=== PATIENT | female | born 1970 | race Caucasian/White ===

== ENCOUNTER 2020-08-05 16:30 | Outpatient (REF) | payer OTHER, SELFPAY ==
[2020-08-05 18:21] LABS: Syphilis Screen Nonreactive (Nonreactive)
[2020-08-05 19:14] LABS: Erythrocyte Sedimentation Rate 7 MM/HR (0-20)
[2020-08-06 17:06] LABS: Lyme Abs Screen <0.90 index
[2020-08-07 14:02] LABS: Anti Nuclear Antibody Screen NEGATIVE (NEGATIVE)
[2020-08-09 11:37] LABS: IgA 140 mg/dL (47-310); IgG 1006 mg/dL (600-1640); IgM 59 mg/dL (50-300)
== END 2020-08-05 16:31 | disposition home or self-care (01) ==
LOC: HO.LAB 16:30
PROVIDERS: PCP Internal Medicine; Visit Provider Psychiatry & Neurology Neurology
DX: G93.49 Other encephalopathy (principal)
CPT/HCPCS: 36415; 82784; 85652; 86038; 86039; 86334; 86618; 86780

== ENCOUNTER → 2023-02-03 08:26 | Outpatient (BNVA) | payer OTHER, SELFPAY | PROVIDERS: PCP Internal Medicine; Visit Provider Nurse Practitioner Family ==

== ENCOUNTER → 2023-02-22 11:06 | Outpatient (REF) | payer OTHER, SELFPAY | LOC: HO.SL 11:06 | PROVIDERS: PCP Internal Medicine; Visit Provider Nurse Practitioner Family | DX: G47.19 Other hypersomnia (principal); R06.83 Snoring; G47.9 Sleep disorder, unspecified | CPT/HCPCS: 95806 ==

== ENCOUNTER 2023-04-22 09:27 | Day surgery (SDC) | payer OTHER, SELFPAY ==
--- NOTE | ~2023-04-22 | FL_ITS ---
EXAMINATION: XR LUMBAR PUNCTURE CLINICAL INFORMATION: 52-year-old female with multiple sclerosis COMPARISON: None available. TECHNIQUE: The patient was positioned oblique prone on the fluoroscopy table. An appropriate site for access to the L2-L3 interlaminar space was marked on the skin. The overlying skin was prepped and draped. 1% lidocaine was injected subcutaneously and extended to the deep soft tissues. Under fluoroscopic guidance, a 22-gauge spinal needle was advanced into the thecal sac. Clear CSF returned through the needle hub. A total of 9 mL of CSF was obtained and split between the 4 containers. A sterile dressing was applied. The patient tolerated the procedure well. FINDINGS: Normal appearance of the CSF. 9 mL obtained. FL/FL guided lumbar puncture LP IMPRESSION: Successful fluoroscopically guided lumbar puncture as described.
[2023-04-22 10:01] VITALS: BMI 22.9
[2023-04-22 10:07] LABS: UPreg QC Valid YES; Urine Pregnancy NEGATIVE (NEGATIVE)
[2023-04-22 10:36] LABS: MANUAL DIFF FLAG NO
[2023-04-22 10:43] LABS: Basophils Absolute Auto 0.1 X10*3/uL (0.0-0.2); Basophils Percent Auto 1.4 % (0-2); Eosinophils Absolute Auto 0.1 X10*3/uL (0.0-0.4); Eosinophils Percent Auto 1.7 % (0-4); Hematocrit 43.1 % (37.0-47.0); Hemoglobin 13.8 g/dl (12.0-16.0); Imm Gran Abs Auto 0.05 X10*3/uL (0.00-0.03); Imm Gran Pct Auto 0.7 % (0.0-0.4); Lymphocytes Absolute Auto 1.6 X10*3/uL (1.2-4.9); Lymphocytes Percent Auto 22.1 % (20-40); Mean Corpuscular Hemoglobin 30.3 pg (27.0-33.0); Mean Corpuscular Volume 94.5 fL (80.0-98.0); Mean Platelet Volume 10.1 fL (9.4-12.3); Monocytes Absolute Auto 0.6 X10*3/uL (0.1-1.2); Monocytes Percent Auto 8.3 % (2-11); Neutrophils Absolute Auto 4.7 x10*3/uL (2.0-8.3); Neutrophils Percent Auto 65.8 % (45-73); Platelet Count 332 X10*3/uL (160-400); Red Blood Count 4.56 X10*6/uL (4.20-5.50); Red Cell Distribution Width 13.2 % (11.0-16.0); White Blood Count 7.1 X10*3/uL (4.8-10.8)
[2023-04-22 10:46] LABS: INTERNATIONAL NORM RATIO 0.8 (0.9-1.1); Prothrombin Time 9.5 SEC (10.0-13.1)
[2023-04-22 10:49] LABS: Partial Thromboplastin Time 30.3 SEC (26.0-36.4)
[2023-04-22 10:52] LABS: Blood Urea Nitrogen 17 mg/dL (9-16); Creatinine Clr Calc Pharmacy 46.7; Estimated Glomerular Filt Rate 50
--- NOTE | 2023-04-22 11:07 | PC.NURSE ---
report given to marti dockery rn at this time. aware to review labs
[2023-04-22 12:54] VITALS: BP 113/68; PULSE 70; RESP 16; TEMP 37.2; O2SAT 99
[2023-04-22 13:15] VITALS: BP 116/67; PULSE 74; RESP 16; O2SAT 99
[2023-04-22 13:45] VITALS: BP 112/68; PULSE 75; RESP 16; O2SAT 99
[2023-04-22 14:15] VITALS: BP 113/67; PULSE 75; RESP 16; TEMP 37.4; O2SAT 99
[2023-04-22 14:28] LABS: CSF Appearance Clear, Colorless
[2023-04-22 14:59] LABS: Glucose CSF 67 mg/dL; Total Protein CSF 17.4 mg/dL (15-45)
[2023-04-22 15:06] LABS: CSF Tube # 1
[2023-04-22 15:55] LABS: Red Blood Cell CSF 45 MM*3; White Blood Cell CSF 6 MM*3
[2023-04-22 15:56] LABS: Appearance CSF CLEAR; CSF Tube # 1; Color CSF COLORLESS; Lymphocytes CSF 100 %
[2023-04-22 16:33] LABS: Appearance CSF CLEAR; CSF Tube # 4; Color CSF COLORLESS
[2023-04-22 16:34] LABS: Red Blood Cell CSF 3 MM*3; White Blood Cell CSF 2 MM*3
[2023-04-22 16:35] LABS: Lymphocytes CSF 1 %
[2023-04-24 07:01] LABS: Oligoclonal Serum Yes
[2023-04-24 20:19] LABS: Lyme (B. burgdorferi) PCR NOT DETECTED (NOT DETECTED)
[2023-04-25 15:28] LABS: VDRL Qualitative CSF Nonreactive (Nonreactive)
[2023-04-27 14:14] LABS: Albumin 3.5 g/dL (3.6-5.1); Albumin, CSF 8.6 mg/dL (8.0-42.0); IgG 860 mg/dL (600-1640); IgG Synthesis Rate -4.2 mg/24 h (-9.9-3.3); IgG, CSF 0.8 mg/dL (0.8-7.7)
[2023-04-29 12:04] LABS: Oligoclonal Banding Absent (Absent)
[2023-05-17 08:58] LABS: Albumin, CSF 8.6
== END 2023-04-22 14:22 | disposition home or self-care (01) ==
PROVIDERS: Nurse Practitioner Family; PCP Internal Medicine; Visit Provider Radiology Diagnostic Radiology
PROC: 009U3ZZ Drainage of Spinal Canal, Percutaneous Approach (ICD-10-PCS; CPT 62270; principal; 2023-04-22 11:00)
DX: R90.82 White matter disease, unspecified (principal); R20.2 Paresthesia of skin; R29.2 Abnormal reflex; R25.1 Tremor, unspecified; G43.009 Migraine without aura, not intractable, without status migrainosus; J45.909 Unspecified asthma, uncomplicated; Z79.899 Other long term (current) drug therapy; Z88.0 Allergy status to penicillin
CPT/HCPCS: 36415; 62328; 81025; 82042; 82565; 82945; 83916; 84157; 84166; 84520; 85025; 85610; 85730; 86335; 86592; 87015; 87070; 87205; 87476; 89051

== ENCOUNTER → 2023-04-22 10:21 | Outpatient (BNV) | payer OTHER, SELFPAY | PROVIDERS: PCP Internal Medicine; Visit Provider Radiology Vascular & Interventional Radiology | DX: G35 Multiple sclerosis (principal) | CPT/HCPCS: 62328 ==

== ENCOUNTER 2023-05-19 09:56 | Outpatient (AMB) | payer OTHER, SELFPAY ==
[2023-05-19 10:22] VITALS: BP 102/68; PULSE 74; O2SAT 100
--- NOTE | 2023-05-19 10:22 | A.OFFVIS_ITS ---
Intake Vital Signs 05/19/23 10:22 Height 5 ft 2 in BP 102/68 Blood Pressure Location Lt brachial Position Sitting Pulse 74 Pulse Source Pulse Oximeter Pulse Oximetry (%) 100 Oxygen Delivery Method Room Air Intake Visit Reasons: 3m follow up LONG/possible MS - Confirmed Intake Note: Pt presents as a 3 month f/u for headache/ possible MS. Pt states she is doing okay and she has no concerns. [employer] Required: No Allergies amoxicillin Allergy (Unknown, Verified 05/19/23 10:24) Unknown bee venom protein (honey bee) Allergy (Unknown, Verified 05/19/23 10:24) Unknown erythromycin base [From Erythrocin] Allergy (Unknown, Verified 05/19/23 10:24) Unknown penicillin G Allergy (Unknown, Verified 05/19/23 10:24) Unknown Medication List - Last Reconciled 05/30/23 by CHARLINE Bhandari albuterol sulfate 90 mcg/actuation inhalation ascorbic acid (vitamin C) PO DAILY azelastine intranasal biotin PO DAILY budesonide-formoterol 160-4.5 mcg/actuation (Symbicort) 2 puffs inhalation BID bupropion HCl 300 mg PO DAILY znzbnudkdd-readacxxschos-pddv 50-325-40 mg 1 tab PO Q4H PRN 7 days cholecalciferol (vitamin D3) PO DAILY etonogestrel-ethinyl estradiol 0.12-0.015 mg/24 hr (NuvaRing) vag rings vaginal gabapentin 300 mg PO BEDTIME levothyroxine 50 mcg PO DAILY magnesium oxide 500 mg PO DAILY montelukast 10 mg PO DAILY oxycodone-acetaminophen 5-325 mg 1 tab PO TID PRN riboflavin (vitamin B2) 400 mg PO DAILY 30 days sumatriptan succinate 100 mg PO Q2H PRN 30 days topiramate 100 mg PO DAILY triamcinolone acetonide (Nasacort) sprays intranasal vitamin B complex PO DAILY zolpidem 5 - 10 mg PO BEDTIME PRN HPI HPI Comments History of Present Illness Details 52-yr-old female presents for f/u visit. Pt denies any significant interval medical changes. Since, the last visit, pt underwent LP to assess for central inflammatory/demyelinating process d/t Brain MRI findings suspicious for demyelinating lesions and pt's former dx of silent MS . She states she tolerated the LP well- had some headache for a day afterwards but did not need to try the Fioricet. The CSF studies were unremarkable- no OG bands noted. Pt reports she has had bouts of LUE numbness/tingling/weakness. At times, this was triggered by head movements. She still has some neck neck pain and LUE pain and tingling. She is seeing [facility] pain management for the chronic back pain a/w BLE numbness/tingling. Denies numbness. Denies any h/o eye pain w/ vision loss, loss of B&B control. Eye exams have been normal. HST was normal- AHI 0/hr and O2 stephanie 93%. Pt reports her headaches are overall better controlled- having 2 headaches per month. She is using her Sumatriptan and OTC analgesics less. [facility] Medical History (Updated 05/19/23 @ 10:25 by Emily Feldman CMA) Arthritis Asthma Depression GERD (gastroesophageal reflux disease) Hypothyroidism Surgical History H/O laparoscopy History of lumbar puncture History of lumbar surgery [place] teeth extracted Family History Father Metastatic melanoma Hypertension Cirrhosis of liver Mother Hypertension Heart disease Brother Testicular cancer Sister Hypertension Sister Hypertension Social History (Updated 05/19/23 @ 10:26 by Emily Feldman CMA) Alcohol intake: current Alcohol intake frequency: holidays/special occasions only Patient Tobacco Use Status: Never used Tobacco Review of Systems Const All systems reviewed & are unremarkable except as noted in HPI and below Physical Exam Vital Signs: Last Vital Signs Pulse 74 05/19/23 10:22 BP 102/68 05/19/23 10:22 Pulse Ox 100 05/19/23 10:22 Oxygen Delivery Method Room Air 05/19/23 10:22 Const General: cooperative and no acute distress Orientation/consciousness: patient oriented x3 HEENT Head: Yes normocephalic Resp Effort & Inspection: normal respiratory effort and able to speak in complete sentences Neuro Other: BUE tremor BUE MS 5-/5 BLE 5-/5. General: patient oriented x3, gait normal and CN's II-XI intact bilaterally Cognition (Neuro): normal cognition Psych Appearance: grossly normal Mental Status: mental status grossly normal Speech and movement: Normal speech and movement present Affect: normal affect Attitude: cooperative Thought process: Normal thought process present Thought content: Normal thought content present Insight: Good insight present (Psych) Judgement: Good judgement present (Psych) Results Reviewed Results Reviewed: Laboratory Tests 04/22/23 04/22/23 04/22/23 10:22 10:22 12:20 WBC 7.1 RBC 4.56 Hgb 13.8 Hct 43.1 Plt Count 332 BUN 17 H Creatinine 1.14 Estimated GFR 50 Albumin (Send Out) 3.5 L CSF Tube Number 4 CSF Volume 2.0 CSF Appearance Clear CSF Color Colorless CSF WBC 2 CSF RBC 3 CSF Lymphocytes 1 CSF Appearance (b) Clear, Colorless CSF Glucose 67 CSF Total Protein 17.4 CSF IgG Synthesis Rate - 4.2 CSF Oligoclonal Bands Absent CSF/Serum IgG Index 0.8 CSF VDRL nonreactive Lyme Disease DNA (PCR) not detected 02/12/23 at [facility] CERVICAL SPINE WITHOUT AND WITH CONTRAST MRI BRAIN WITHOUT AND WITH CONTRAST MRI CERVICAL SPINE IMPRESSION: 1. Normal appearance to the spinal cord with no evidence for demyelinating disease. No abnormal enhancement. 2. Mild degrees of anterolisthesis at C4-C5 and C5-C6 with discogenic degenerative changes as described above, with a small central disc protrusion at C4-C5 without cord impingement or canal stenosis. 3. Right-sided uncovertebral spurring and facet arthropathy at C5-C6 with mild right-sided neural foraminal stenosis. 4. Left-sided facet arthrosis at C7-T1 with mild left-sided neural foraminal stenosis. MRI BRAIN IMPRESSION: 1. Nonspecific nonenhancing white matter lesions in the cerebral hemispheres, left more than right as discussed above. There is no evidence for active inflammatory process. The lesions are not entirely typical for MS but this cannot be entirely excluded as there is some T2 hyperintensity noted at the callososeptal interface which can be seen with MS. Follow-up as per clinical indications. 2. No intracranial mass lesions, pathologic intracranial enhancement, space-occupying process, mass effect, hemorrhage or hydrocephalus. Assessment & Plan Assessment & Plan (1) White matter abnormality on MRI of brain: Code(s): R90.82 - White matter disease, unspecified (2) Migraine without aura: Code(s): G43.009 - Migraine without aura, not intractable, without status migrainosus Plan For sleep: Reviewed HST- normal. For nonspecific bilateral cerebral white matter changes: Reviewed LP/CSF studies- unremarkable. I will refer pt to the [facility] to request their opinion. For overall headache management: Continue optimizing good self-care, including but not limited to maintaining a healthy diet,? adequate fluid intake, adequate sleep, and engaging in regular physical activity. For acute headache treatment: Continue Sumatriptan 100mg prn. May adjunct w/ Aleve/Ibuprofen. Previous acute migraine medication trials: None Acute migraine medication contraindications: None For headache prevention medication: Continue Riboflavin 400mg qam Continue Magnesium 400mg qhs Previous migraine prevention medication trials: None Migraine prevention medication contraindications: None f/u in 3 months or sooner prn. Coding Level of Care Code Est Pt Level 4 (40221) Diagnoses White matter abnormality on MRI of brain R90.82 Migraine without aura G43.009
== END 2023-05-19 11:27 | disposition home or self-care (01) ==
PROVIDERS: Visit Provider Nurse Practitioner Family
DX: R90.82 White matter disease, unspecified (principal); G43.009 Migraine without aura, not intractable, without status migrainosus
CPT/HCPCS: 99214

== ENCOUNTER → 2023-05-19 09:56 | Outpatient (BNVA) | payer OTHER, SELFPAY | PROVIDERS: Visit Provider Nurse Practitioner Family ==

== ENCOUNTER 2023-09-02 09:24 | Outpatient (AMB) | payer OTHER, SELFPAY ==
[2023-09-02 09:26] VITALS: BP 122/76; PULSE 93; O2SAT 94; BMI 24.0
--- NOTE | 2023-09-02 09:26 | MHC.OFFVIS ---
Intake Vital Signs 09/02/23 09:26 Height 5 ft 2 in Weight 131 lb 8 oz BMI 24.0 BP 122/76 Blood Pressure Location Lt brachial Position Sitting Pulse 93 Pulse Source Pulse Oximeter Pulse Oximetry (%) 94 Oxygen Delivery Method Room Air Intake Visit Reasons: 3m f/u LONG/possible MS - LVM Intake Note: Pt presents to the office today for a 3 month follow up for LONG/possible MS. Allergies amoxicillin Allergy (Unknown, Verified 09/02/23 09:29) Unknown bee venom protein (honey bee) Allergy (Unknown, Verified 09/02/23 09:29) Unknown erythromycin base [From Erythrocin] Allergy (Unknown, Verified 09/02/23 09:29) Unknown penicillin G Allergy (Unknown, Verified 09/02/23 09:29) Unknown Medication List - Last Reconciled 09/02/23 by CHARLINE Bhandari albuterol sulfate 90 mcg/actuation inhalation ascorbic acid (vitamin C) PO DAILY azelastine intranasal biotin PO DAILY budesonide-formoterol 160-4.5 mcg/actuation (Symbicort) 2 puffs inhalation BID bupropion HCl 300 mg PO DAILY bbijdvmydq-klhtgogtpshgg-eygo 50-325-40 mg 1 tab PO Q4H PRN 7 days cholecalciferol (vitamin D3) PO DAILY gabapentin 300 mg PO BEDTIME levothyroxine 50 mcg PO DAILY magnesium oxide 500 mg PO DAILY montelukast 10 mg PO DAILY norethindrone (contraceptive) (Incassia) 0.35 mg PO DAILY oxycodone-acetaminophen 5-325 mg 1 tab PO TID PRN riboflavin (vitamin B2) 400 mg PO DAILY 30 days sumatriptan succinate 100 mg PO Q2H PRN 30 days topiramate 100 mg PO DAILY triamcinolone acetonide (Nasacort) sprays intranasal vitamin B complex PO DAILY zolpidem 5 - 10 mg PO BEDTIME PRN HPI HPI Comments History of Present Illness Details 53-yr-old female presents for f/u visit. Pt denies any significant interval medical changes. Pt did have initial consult at [facility]- they asked her to have f/u as they did not have all her records. She states she is having less headaches less often. Now headache lasting 1 day every few weeks. The Sumatripatn does usually help. Tolerating Topiramate well. PFSH Medical History Hypothyroidism GERD (gastroesophageal reflux disease) Arthritis Asthma Depression Surgical History History of lumbar puncture H/O laparoscopy [place] teeth extracted History of lumbar surgery Family History Father Metastatic melanoma Hypertension Cirrhosis of liver Mother Hypertension Heart disease Brother Testicular cancer Sister Hypertension Sister Hypertension Social History Alcohol intake: current Alcohol intake frequency: holidays/special occasions only Patient Tobacco Use Status: Never used Tobacco Review of Systems Const All systems reviewed & are unremarkable except as noted in HPI and below Physical Exam Vital Signs: Last Vital Signs Pulse 93 09/02/23 09:26 BP 122/76 09/02/23 09:26 Pulse Ox 94 09/02/23 09:26 Oxygen Delivery Method Room Air 09/02/23 09:26 BMI result Body Mass Index 24.0 Const General: cooperative and no acute distress Orientation/consciousness: patient oriented x3 HEENT Head: Yes normocephalic Resp Effort & Inspection: normal respiratory effort and able to speak in complete sentences Neuro General: patient oriented x3, gait normal and CN's II-XI intact bilaterally Cognition (Neuro): normal cognition Motor exam (neuro): 5/5 motor strength present throughout Psych Appearance: grossly normal Mental Status: mental status grossly normal Speech and movement: Normal speech and movement present Affect: normal affect Attitude: cooperative Thought process: Normal thought process present Thought content: Normal thought content present Insight: Good insight present (Psych) Judgement: Good judgement present (Psych) Assessment & Plan Assessment & Plan (1) Migraine without aura: Code(s): G43.009 - Migraine without aura, not intractable, without status migrainosus (2) White matter abnormality on MRI of brain: Code(s): R90.82 - White matter disease, unspecified Plan For sleep: HST- normal. Sleep hygiene information shared. ? For nonspecific bilateral cerebral white matter changes: F/u w/ [facility]- will reach out to ensure they have all needed reports. ? For overall headache management: Continue optimizing good self-care, including but not limited to maintaining a healthy diet,? adequate fluid intake, adequate sleep, and engaging in regular physical activity. ? For acute headache treatment: Continue Sumatriptan 100mg prn. May adjunct w/ Aleve/Ibuprofen. Previous acute migraine medication trials: None Acute migraine medication contraindications: None ? For headache prevention medication: Continue Riboflavin 400mg qam Continue Magnesium 400mg qhs Continue Topiramate. Previous migraine prevention medication trials: None Migraine prevention medication contraindications: None ? f/u in 4 months or sooner prn. Coding Level of Care Code Est Pt Level 4 (68340) Diagnoses Migraine without aura G43.009 White matter abnormality on MRI of brain R90.82
== END 2023-09-02 10:10 | disposition home or self-care (01) ==
PROVIDERS: PCP Internal Medicine; Visit Provider Nurse Practitioner Family
DX: G43.009 Migraine without aura, not intractable, without status migrainosus (principal); R90.82 White matter disease, unspecified
CPT/HCPCS: 99214

== ENCOUNTER → 2023-09-02 09:24 | Outpatient (BNVA) | payer OTHER, SELFPAY | PROVIDERS: PCP Internal Medicine; Visit Provider Nurse Practitioner Family ==

== ENCOUNTER 2023-12-28 09:19 | Outpatient (AMB) | payer OTHER, SELFPAY ==
--- NOTE | 2023-12-28 09:59 | MHC.OFFVIS ---
Intake Vital Signs 12/28/23 10:00 Height 5 ft 2 in Weight 117 lb BMI 21.4 BP 110/78 Blood Pressure Location Rt brachial Position Sitting Pulse 74 Pulse Source Pulse Oximeter Pulse Oximetry (%) 99 Oxygen Delivery Method Room Air Intake Visit Reasons: 4 mo f/u - LONG/Possible MS-Conf Intake Note: Patient presents for 4 month follow up Allergies amoxicillin Allergy (Unknown, Verified 12/28/23 10:01) Unknown bee venom protein (honey bee) Allergy (Unknown, Verified 12/28/23 10:01) Unknown erythromycin base [From Erythrocin] Allergy (Unknown, Verified 12/28/23 10:01) Unknown penicillin G Allergy (Unknown, Verified 12/28/23 10:01) Unknown Medication List - Last Reconciled 12/28/23 by CHARLINE Bhandari albuterol sulfate 90 mcg/actuation inhalation ascorbic acid (vitamin C) PO DAILY azelastine intranasal biotin PO DAILY budesonide-formoterol 160-4.5 mcg/actuation (Symbicort) 2 puffs inhalation BID bupropion HCl 300 mg PO DAILY qkdzfdwkow-oqegujbdrxqkh-fgbo 50-325-40 mg 1 tab PO Q4H PRN 7 days cholecalciferol (vitamin D3) PO DAILY eszopiclone (Lunesta) 2 mg PO BEDTIME gabapentin 300 mg PO BEDTIME levothyroxine 50 mcg PO DAILY magnesium oxide 500 mg PO DAILY montelukast 10 mg PO DAILY norethindrone (contraceptive) (Incassia) 0.35 mg PO DAILY oxycodone-acetaminophen 5-325 mg 1 tab PO TID PRN riboflavin (vitamin B2) 400 mg PO DAILY 30 days sumatriptan succinate 100 mg PO Q2H PRN 30 days topiramate 100 mg PO DAILY triamcinolone acetonide (Nasacort) sprays intranasal vitamin B complex PO DAILY zolpidem 5 - 10 mg PO BEDTIME PRN HPI HPI Comments History of Present Illness Details 53-yr-old female presents for f/u visit. Pt endorses the following interval medical history changes: In Mid-Oct, had GI illness causing N/V/D/anorexia. She has lost > 10 lbs. Work-up, including for c-diff, was negative. Her s/s have improved, however her appetite is still suppressed. She did have interval Brain/orbits MRI and c-spine MRI- through the [facility]. She was having left eye pain over last summer- it is better now. Her brain MRI was stable/possbily slightly improved. Orbits- normal. C-spine MRI- no cord lesions; there is C5-6 degenerative disc disease with 2 mm C5-6 anterolisthesis. Her headaches have been better- rarely having a headache. She wonders if recently changing her heating system from base board heat to mini-splits has helped- the air is not as dry. She did stop the Topiramate in October- felt posterior headache that she started yrs ago- it for had resolved, so decided to take a break from it. Baseline headache characteristics: Prodrome symptoms of tiredness. Severe, Over the top of head- throbbing pain a/w photophobia, phonophobia, osmophobia, nausea, tiredness, brain fog. Denies any parestehsias, foacal weakness, autonomic s/s. Postdrome of Headache may linger [facility] Medical History Hypothyroidism GERD (gastroesophageal reflux disease) Arthritis Asthma Depression Surgical History History of lumbar puncture H/O laparoscopy [place] teeth extracted History of lumbar surgery Family History Father Metastatic melanoma Hypertension Cirrhosis of liver Mother Hypertension Heart disease Brother Testicular cancer Sister Hypertension Sister Hypertension Social History Alcohol intake: current Alcohol intake frequency: holidays/special occasions only Patient Tobacco Use Status: Never used Tobacco Physical Exam Vital Signs: Last Vital Signs Pulse 74 12/28/23 10:00 BP 110/78 12/28/23 10:00 Pulse Ox 99 12/28/23 10:00 Oxygen Delivery Method Room Air 12/28/23 10:00 BMI result Body Mass Index 21.4 Const General: cooperative and no acute distress Orientation/consciousness: patient oriented x3 Resp Effort & Inspection: normal respiratory effort and able to speak in complete sentences Neuro General: patient oriented x3 Cranial nerves: Yes CN's II-XII intact bilaterally Cognition (Neuro): normal cognition Psych Appearance: grossly normal Mental Status: mental status grossly normal Speech and movement: Normal speech and movement present Affect: normal affect Attitude: cooperative Results Reviewed Results Reviewed: 12/03/23, PROCEDURE: MR BRAIN w + wo CONTRAST, MR ORBIT w + wo CONTRAST INDICATION: Migraines. Chronic nonspecified white matter lesions on MRI. Pain of left eye. TECHNIQUE: Multi-planar, multi-sequence MR imaging of the brain and orbits was performed without and with intravenous contrast administration. Dotarem 10 mL was administered intravenously. No contrast waste documented. COMPARISON: MR brain 02/12/23. MR brain 10/13/13 (imaging only; report unavailable). FINDINGS: Brain Diffusion-weighted imaging demonstrates no area of restricted diffusion to suggest acute infarction. There is no intracranial hemorrhage, midline shift, mass effect, or extra-axial fluid collection. Focal areas of increased T2 signal intensity within the cerebral white matter particularly within the left parietal and occipital lobes appear less intense on the current exam some of which may be related to differences in technique but may represent areas of acute inflammatory change. Brain parenchyma otherwise demonstrates normal morphology and signal characteristics. There are no areas of abnormal enhancement. Midline structures are within normal limits. Major intracranial vessels demonstrate preserved flow voids. Brain volume and ventricular system are within normal limits for age. Visualized paranasal sinuses are unremarkable. Mastoid air cells are unremarkable. Orbits: Orbital structures including globes and extraocular muscles are intact bilaterally. No orbital mass or enhancing lesion is identified. Optic nerves, optic chiasm, as well as visualized pre-and post chiasmatic tracts are unremarkable. Remainder of the visualized sellar and suprasellar structures are within normal limits. IMPRESSION: 1.Focal areas of increased T2 signal intensity within the cerebral white matter appear less intense on the current exam some of which may be related to differences in technique but may also represent areas of resolving acute inflammatory change. 2.Normal MRI orbits. 12/01/23, PROCEDURE: MR SPINE CERVICAL w + wo CONTRAST INDICATION: Chronic nonspecific white matter lesions on MRI. Pain in left eye. Left-sided neck pain and tingling and numbness in bilateral arms and hands for 1 year. Mild degenerative disc disease C5-C6. Grade I anterolisthesis C5 and C6. Minimal loss of disc height. C5-C6 with endplate changes. Facet arthropathy at C5-C6. Bilateral neck pain. Left arm tingling and numbness. Right arm pain, tingling and numbness. TECHNIQUE: Unenhanced and enhanced multiplanar, multisequence MR imaging of the cervical spine. Dotarem 10 mL was administered intravenously. No contrast waste documented. COMPARISON: MR cervical spine 02/12/2023. FINDINGS: There is 2 mm C5-6 anterolisthesis.. Vertebral heights are well maintained. Craniocervical junction is unremarkable. Bone marrow signal is within normal limits, and no suspicious osseous lesion is identified. Prevertebral and paraspinal soft tissues are within normal limits. Visualized portions of the posterior fossa are unremarkable. Cervical cord demonstrates normal course, caliber, and signal characteristics. No epidural fluid collection or hematoma is identified. No area of abnormal enhancement is identified. At C2-3 there is no significant disc herniation or protrusion. No central canal or neural foraminal stenosis is demonstrated. At C3-4 there is no significant disc herniation or protrusion. No central canal or neural foraminal stenosis is demonstrated. At C4-5 there is no significant disc herniation or protrusion. No central canal or neural foraminal stenosis is demonstrated. At C5-6 there is no significant disc herniation or protrusion. No central canal or neural foraminal stenosis is demonstrated. There is a mild broad-based disc bulge slightly effacing the ventral aspect of the thecal sac without abutting the cord. There is right-sided uncovertebral joint hypertrophy causing right-sided neuroforaminal stenosis without nerve root encroachment. At C6-7 there is no significant disc herniation or protrusion. No central canal or neural foraminal stenosis is demonstrated. At C7-T1 there is no significant disc herniation or protrusion. No central canal or neural foraminal stenosis is demonstrated. IMPRESSION: 1.No enhancing cervical cord lesions identified. 2.C5-6 degenerative disc disease with 2 mm C5-6 anterolisthesis. 3.No focal disc herniation or clinically significant central canal stenosis. 4.No exiting nerve root encroachment seen. Assessment & Plan Assessment & Plan (1) Migraine without aura: Code(s): G43.009 - Migraine without aura, not intractable, without status migrainosus (2) Eye pain: Code(s): H57.10 - Ocular pain, unspecified eye Plan For sleep: HST- normal. Sleep hygiene information shared. ? For nonspecific bilateral cerebral white matter changes: F/u w/ [facility]. Monitor eye pain- recent MRI orbit- NL. ? eye pain r/t headache d/o process. ? For overall headache management: Continue optimizing good self-care, including but not limited to maintaining a healthy diet,? adequate fluid intake, adequate sleep, and engaging in regular physical activity. ? For acute headache treatment: Continue Sumatriptan 100mg prn. May adjunct w/ Aleve/Ibuprofen. Previous acute migraine medication trials: None Acute migraine medication contraindications: None ? For headache prevention medication: Continue Riboflavin 400mg qam Continue Magnesium 400mg qhs Continue to hold Topiramate. If headaches worsen, pt advised to notify us, would not resume Topiramate as this may exacerbate decreased appetite and wt loss. Previous migraine prevention medication trials: None Migraine prevention medication contraindications: None ? f/u in 6 months or sooner prn. Coding Level of Care Code Est Pt Level 4 (31258) Diagnoses Migraine without aura G43.009 Eye pain H57.10
[2023-12-28 10:00] VITALS: BP 110/78; PULSE 74; O2SAT 99; BMI 21.4
== END 2023-12-28 10:34 | disposition home or self-care (01) ==
PROVIDERS: PCP Internal Medicine; Visit Provider Nurse Practitioner Family
DX: G43.009 Migraine without aura, not intractable, without status migrainosus (principal); H57.10 Ocular pain, unspecified eye
CPT/HCPCS: 99214

== ENCOUNTER → 2023-12-28 09:19 | Outpatient (BNVA) | payer OTHER, SELFPAY | PROVIDERS: PCP Internal Medicine; Visit Provider Nurse Practitioner Family ==

== ENCOUNTER 2024-06-29 08:10 | Outpatient (AMB) | payer OTHER, SELFPAY ==
[2024-06-29 08:11] VITALS: BP 116/70; PULSE 84; O2SAT 100; BMI 19.1
--- NOTE | 2024-06-29 08:11 | A.OFFVIS_ITS ---
Vital Signs 06/29/24 08:11 Height 5 ft 2 in Weight 104 lb 4 oz BMI 19.1 BP 116/70 Blood Pressure Location Rt brachial Position Sitting Pulse 84 Pulse Source Pulse Oximeter Pulse Oximetry (%) 100 Oxygen Delivery Method Room Air Intake Visit Reasons: follow up LONG/Possible MS Mortar Carrier Required: No Accompanied by: Self / Same As Patient Allergies amoxicillin Allergy (Unknown, Verified 06/29/24 08:11) Unknown bee venom protein (honey bee) Allergy (Unknown, Verified 06/29/24 08:11) Unknown erythromycin base [From Erythrocin] Allergy (Unknown, Verified 06/29/24 08:11) Unknown penicillin G Allergy (Unknown, Verified 06/29/24 08:11) Unknown Medication List - Last Reconciled 06/29/24 by CHARLINE Bhandari albuterol sulfate 90 mcg/actuation inhalation ascorbic acid (vitamin C) PO DAILY azelastine intranasal biotin PO DAILY budesonide-formoterol 160-4.5 mcg/actuation (Symbicort) 2 puffs inhalation BID bupropion HCl XL 300 mg PO DAILY agqtcmutso-momplckhbrcbu-irke 50-325-40 mg 1 tab PO Q4H PRN 7 days cholecalciferol (vitamin D3) PO DAILY eszopiclone (Lunesta) 2 mg PO BEDTIME gabapentin 300 mg PO BEDTIME levothyroxine 50 mcg PO DAILY magnesium oxide 500 mg PO DAILY montelukast 10 mg PO DAILY norethindrone (contraceptive) (Incassia) 0.35 mg PO DAILY oxycodone-acetaminophen 5-325 mg 1 tab PO TID PRN riboflavin (vitamin B2) 400 mg PO DAILY 30 days sumatriptan succinate 100 mg PO Q2H PRN 30 days triamcinolone acetonide (Nasacort) sprays intranasal vitamin B complex PO DAILY zolpidem 5 - 10 mg PO BEDTIME PRN HPI Comments Details: 54-yr-old female presents for f/u visit. Pt denies any significant interval health changes. She is continuing to lose weight despite eating, chronic diarrhea. She has had a number of abd CTs which were unremarkable. She is scheduled to see GI at [facility]. She did have consult w/ the [facility]- they were not sure if pt has MS or not- they advised her to have f/u imaging and visit to monitor. She continues to have some difficulty falling asleep- her mind just keeps going. She tried to go some CBT-I exercises. She stopped using the Zolpidem- as it stopped working. Currently taking Lunesta- works some time. Denies parasomnias. Takes her Wellbutrin 300mg Xl between 9-10am. Tried Amitriptyline and Trazodone- ineffective and caused dry mouth. Her headaches have been good- now having at most 2 x's per month. She is using Sumatriptan w/ good effect and no adverse effects. Baseline headache characteristics: Prodrome symptoms of tiredness. Severe, Over the top of head- throbbing pain a/w photophobia, phonophobia, osmophobia, nausea, tiredness, brain fog. Denies any parestehsias, foacal weakness, autonomic s/s. Postdrome of Headache may linger [facility] Medical History Hypothyroidism GERD (gastroesophageal reflux disease) Arthritis Asthma Depression Surgical History History of lumbar puncture H/O laparoscopy [place] teeth extracted History of lumbar surgery Family History Father Metastatic melanoma Hypertension Cirrhosis of liver Mother Hypertension Heart disease Brother Testicular cancer Sister Hypertension Sister Hypertension Social History Alcohol intake: current Alcohol intake frequency: holidays/special occasions only Patient Tobacco Use Status: Never used Tobacco Physical Exam Vital Signs: Last Vital Signs Pulse 84 06/29/24 08:11 BP 116/70 06/29/24 08:11 Pulse Ox 100 06/29/24 08:11 Oxygen Delivery Method Room Air 06/29/24 08:11 BMI result Body Mass Index 19.1 Const General: cooperative and no acute distress Orientation/consciousness: patient oriented x3 Resp Effort & Inspection: normal respiratory effort and able to speak in complete sentences Neuro General: patient oriented x3 Cranial nerves: Yes CN's II-XII intact bilaterally Cognition (Neuro): normal cognition Psych Appearance: grossly normal Mental Status: mental status grossly normal Speech and movement: Normal speech and movement present Affect: normal affect Attitude: cooperative Assessment & Plan Assessment & Plan (1) Migraine without aura: Code(s): G43.009 - Migraine without aura, not intractable, without status migrainosus Category: Medical (2) White matter abnormality on MRI of brain: Code(s): R90.82 - White matter disease, unspecified Category: Medical (3) Sleep difficulties: Code(s): G47.9 - Sleep disorder, unspecified Category: Medical Plan For sleep: HST- normal. Reviewed sleep hygiene information. Try maintain consistent wake time. Trial Melatoinin 3-6mg q evening at sunset. Try taking Buproprion, Vit B's earlier in am- preferably jsut after arising. ? For nonspecific bilateral cerebral white matter changes: F/u w/ [facility] as scheduled. Monitor eye pain- recent MRI orbit- NL. ? eye pain r/t headache d/o process. ? For overall headache management: Continue optimizing good self-care, including but not limited to maintaining a healthy diet,? adequate fluid intake, adequate sleep, and engaging in regular physical activity. ? For acute headache treatment: Continue Sumatriptan 100mg prn. May adjunct w/ Aleve/Ibuprofen. May try warm compresses, migraine heat tx's- info shared. Previous acute migraine medication trials: None Acute migraine medication contraindications: None ? For headache prevention medication: Continue Riboflavin 400mg qam Pt stopped Magnesium 400mg qhs d/t chronic diarrhea. Continue to hold Topiramate. If headaches worsen, pt advised to notify us, would not resume Topiramate as this may exacerbate decreased appetite and wt loss. Previous migraine prevention medication trials: None Migraine prevention medication contraindications: Amitriptyline- for sleep- caused dry mouth. ? f/u in 6 months or sooner prn. Medications: New melatonin at sunset 3 - 6 mg (1 - 2 x 3 mg) PO DAILY 30 days PRN 60 caps 6RF sleep Refilled riboflavin (vitamin B2) 400 mg PO DAILY 30 days 30 tabs 6RF sumatriptan succinate max 2 tabs per day 100 mg PO Q2H 30 days PRN 12 tabs 6RF migraine headache Discontinued ijtaidmnge-pxidaoshxgzau-jqsg 50-325-40 mg max 4 tabs per day Discontinued Reason: Patient Completed Course 1 tab PO Q4H 7 days PRN 28 tabs 1RF post-lumbar puncture headache Coding Level of Care Code Est Pt Level 4 (12426) Diagnoses Migraine without aura G43.009 White matter abnormality on MRI of brain R90.82 Sleep difficulties G47.9
== END 2024-06-29 08:50 | disposition home or self-care (01) ==
PROVIDERS: PCP Internal Medicine; Visit Provider Nurse Practitioner Family
DX: G43.009 Migraine without aura, not intractable, without status migrainosus (principal); R90.82 White matter disease, unspecified; G47.9 Sleep disorder, unspecified
CPT/HCPCS: 99214

== ENCOUNTER → 2024-06-29 08:10 | Outpatient (BNVA) | payer OTHER, SELFPAY | PROVIDERS: PCP Internal Medicine; Visit Provider Nurse Practitioner Family ==

== ENCOUNTER 2025-01-09 08:00 | Outpatient (AMB) | payer OTHER, SELFPAY ==
--- NOTE | 2025-01-09 07:57 | MHC.OFFVIS ---
Vital Signs 01/09/25 08:02 Height 5 ft 2 in Weight 107 lb BMI 19.6 BP 102/82 Blood Pressure Location Rt brachial Position Sitting Pulse 103 H Pulse Source Pulse Oximeter Pulse Oximetry (%) 97 Oxygen Delivery Method Room Air Intake Visit Reasons: Follow Up 6mo Intake Note: Patient presents for follow up migraine with aura. melatonin trial Allergies amoxicillin Allergy (Unknown, Verified 01/09/25 08:03) Unknown bee venom protein (honey bee) Allergy (Unknown, Verified 01/09/25 08:03) Unknown erythromycin base [From Erythrocin] Allergy (Unknown, Verified 01/09/25 08:03) Unknown penicillin G Allergy (Unknown, Verified 01/09/25 08:03) Unknown HPI Comments Details: History of Present Illness The patient is a 78-year-old female presenting with migraine without aura. Current treatment involves riboflavin and as-needed sumatriptan. Migraines occur infrequently-a couple of times a month, and medication is effective. The patient reports sleep difficulties managed with melatonin and Lunesta, showing some improvement. Baseline headache characteristics: Prodrome symptoms of tiredness. Severe, Over the top of head- throbbing pain a/w photophobia, phonophobia, osmophobia, nausea, tiredness, brain fog. Denies any parestehsias, foacal weakness, autonomic s/s. Postdrome of Headache may linger The patient has nonspecific bilateral cervical white matter changes, stable on recent imaging. Gastrointestinal symptoms have led to an upcoming endoscopy. Osteoporosis was identified following elevated alkaline phosphatase levels. Dietary changes include reintroducing meat post-vegetarianism. Esophageal dysmotility was found during evaluation for swallowing difficulties. Social History - Dietary: Previously vegetarian for 14 years, recently began eating meat, primarily chicken. Review of Systems - Neurologic: Reports migraines without aura. - Sleep: Reports some improvement in sleep difficulties. - Gastrointestinal: Reports ongoing symptoms with planned endoscopy. Some difficulty swallowing pills-feels like a become stuck. Recent MBS showed possible fluttering and lower esophagus. Results - Imaging: Stable nonspecific bilateral cervical white matter changes. - Tests: Barium swallow revealing esophageal dysmotility. Bone density showed osteoporosis PFSH Medical History Hypothyroidism GERD (gastroesophageal reflux disease) Arthritis Asthma Depression Surgical History History of lumbar puncture H/O laparoscopy [place] teeth extracted History of lumbar surgery Family History Father Metastatic melanoma Hypertension Cirrhosis of liver Mother Hypertension Heart disease Brother Testicular cancer Sister Hypertension Sister Hypertension Social History Alcohol intake: current Alcohol intake frequency: holidays/special occasions only Patient Tobacco Use Status: Never used Tobacco Physical Exam Vital Signs: Last Vital Signs Pulse 103 H 01/09/25 08:02 BP 102/82 01/09/25 08:02 Pulse Ox 97 01/09/25 08:02 Oxygen Delivery Method Room Air 01/09/25 08:02 BMI result Body Mass Index 19.6 Const General: cooperative and no acute distress Orientation/consciousness: patient oriented x3 Resp Effort & Inspection: normal respiratory effort and able to speak in complete sentences Neuro General: patient oriented x3 Cranial nerves: Yes CN's II-XII intact bilaterally Cognition (Neuro): normal cognition Psych Appearance: grossly normal Mental Status: mental status grossly normal Speech and movement: Normal speech and movement present Affect: normal affect Attitude: cooperative Assessment & Plan Assessment & Plan (1) Migraine without aura: Code(s): G43.009 - Migraine without aura, not intractable, without status migrainosus Category: Medical (2) White matter abnormality on MRI of brain: Code(s): R90.82 - White matter disease, unspecified Category: Medical (3) Sleep difficulties: Code(s): G47.9 - Sleep disorder, unspecified Category: Medical Plan Discussion Notes I discussed with the patient the management of migraine with preventative treatment using riboflavin and the acute management with sumatriptan. The results for the cervical white matter changes appear stable, which is reassuring. The plan for a gastroenterological evaluation and endoscopy was discussed as necessary due to ongoing gastrointestinal symptoms. I advised the patient to follow up with endocrinology regarding osteoporosis to identify potential treatments and causes. We discussed the importance of nutritional intake and reintroducing meat into the diet to address nutritional deficiencies possibly contributing to osteoporosis. Follow-up is suggested in six to nine months unless symptoms warrant earlier attention. Patient was informed and verbally consented to the use of an ambient scribe for clinic note documentation during this visit. Plan and Patient Instructions For sleep: HST- normal. Continue to optimize sleep hygiene i and maintain consistent wake-up time. Continue Melatoinin 3-6mg q evening at sunset. Continue Lunesta at bedtime. Take Buproprion, Vit B's earlier in am- preferably jsut after arising. ? For nonspecific bilateral cerebral white matter changes: Recent brain MRI showed stable white matter changes. F/u w/ [facility] as scheduled. ? For overall headache management: Continue optimizing good self-care, including but not limited to maintaining a healthy diet,? adequate fluid intake, adequate sleep, and engaging in regular physical activity. ? For acute headache treatment: Continue Sumatriptan 100mg prn. May adjunct w/ Aleve/Ibuprofen. May try warm compresses, migraine heat tx's- info shared. Previous acute migraine medication trials: None Acute migraine medication contraindications: None ? For headache prevention medication: Continue Riboflavin 400mg qam Continue to hold Topiramate. If headaches worsen, pt advised to notify us, would not resume Topiramate as this may exacerbate decreased appetite and wt loss. Previous migraine prevention medication trials: Magnesium caused diarrhea. Migraine prevention medication contraindications: Amitriptyline- for sleep- caused dry mouth. ? General: - Follow up with health and safety inspector and complete the scheduled endoscopy. - Attend endocrinology appointment on February 02 for osteoporosis management. - Maintain a balanced diet, including meat for nutritional support. - Contact the office if you experience any changes in your condition before the next follow-up. - Schedule a follow-up visit in six to nine months or as needed. Medications: Changed From riboflavin (vitamin B2) 400 mg PO DAILY 30 days 30 tabs 6RF To riboflavin (vitamin B2) 400 mg PO DAILY 90 days 90 tabs 3RF From melatonin at sunset 3 - 6 mg (1 - 2 x 3 mg) PO DAILY 30 days PRN 60 caps 6RF sleep To melatonin at sunset 3 - 6 mg (1 - 2 x 3 mg) PO DAILY 90 days PRN 180 caps 6RF sleep From sumatriptan succinate max 2 tabs per day 100 mg PO Q2H 30 days PRN 12 tabs 6RF migraine headache To sumatriptan succinate max 2 tabs per day 100 mg PO Q2H 90 days PRN 36 tabs 3RF migraine headache Coding Level of Care Code Est Pt Level 4 (50166) Diagnoses Migraine without aura G43.009 White matter abnormality on MRI of brain R90.82 Sleep difficulties G47.9
[2025-01-09 08:02] VITALS: BP 102/82; PULSE 103; O2SAT 97; BMI 19.6
--- OUTSIDE RECORDS SUMMARY | 2025-01-09 08:05 | XMS_ITS | Clinical Summary ---
Author Organization [facility] Address [address] [place] [address] Care Team Providers Care Assessment Manager Name Role Phone Capo Nunes MD Primary Care Provider [phone] Allergies Active Allergy Reactions Criticality Noted Date Comments Erythromycin Nausea And Vomiting 04/07/2011 Wasp Venom Protein 11/03/2019 Medications Medication Sig Dispensed Refills Start Date End Date Status albuterol 108 (90 Base) MCG/ACT inhaler 0 04/08/2023 Act christiano Symbicort 160-4.5 MCG/ACT inhaler 0 05/29/2023 Active buPROPion (WELLBUTRIN XL) 300 MG 24 hr tablet Take by mouth. 0 11/30/2022 Active cetirizine (ZyrTEC) 10 MG tablet Take 1 tablet (10 mg total) by mouth. 0 08/27/2021 Active EPINEPHrine 0.3 MG/0.3ML SOAJ 0 06/24/2023 Active gabapentin (NEURONTIN) 300 MG capsule Take 1 capsule (300 mg total) by mouth every night at bedtime. 0 05/26/2023 Active oxyCODONE-acetaminoph en (PERCOCET) 5-325 MG per tablet 0 07/03/2023 Active Riboflavin 400 MG TABS 0 07/04/2023 Active SUMAtriptan (IMITREX) 100 MG tablet TAKE 1 TABLET BY MOUTH EVERY 2 HOURS NEEDED FOR MIGRAINE HEADACHE FOR 30 DAYS. MAX 2 TABS/DAY 0 06/19/2023 Active Nasacort Allergy 24HR 55 MCG/ACT AERO 0 05/23/2023 Active thiamine (VITAMIN B-1) 100 MG tablet 0 09/15/2023 Active eszopiclone (LUNESTA) 2 MG TABS TAKE 1 TABLET BY MOUTH EVERY NIGHT AT BEDTIME NEEDED FOR INSOMNIA 0 01/27/2024 Active venlafaxine (EFFEXOR-XR) 75 MG 24 hr capsule Take 1 capsule (75 mg total) by mouth daily. 0 05/28/2024 Active Immunizations Name Administration Dates Next Due Covid-19 (Moderna Booster 18+) 0.25mL dosage 01/2021 Social History Tobacco Use Types Packs/Day Years Used Date Smoking Tobacco: Never Assessed Tobacco Cessation:Counseling Given: Not Answered Sex and Gender Information Value Date Recorded Sex Assigned at Female 06/24/2023 2:42 PM EDT Gender Identity Not on file Sexual Orientation Not on file Job Start Date Occupation Industry Not on file Not on file Not on file Last Filed Vital Signs Vital Sign Reading Time Taken Comments Blood Pressure 116/75 08/04/2024 8:07 AM EDT Pulse 80 08/04/2024 8:07 AM EDT Temperature 36.2 ??C (97.2 ??F) 02/02/2024 8:30 AM ED T Respiratory Rate - - Oxygen Saturation 99% 08/04/2024 8:07 AM EDT Inhaled Oxygen Concentration - - Weight 46.7 kg (103 lb) 08/04/2024 8:07 AM EDT Height 152.4 cm (5') 08/04/2024 8:07 AM EDT Body Mass Index 20.12 08/04/2024 8:07 AM EDT Plan of Treatment Health Maintenance Due Date Last Done Comments Hepatitis B Vaccines (1 of 3 - 3-dose series) 1972 Hepatitis C Screening 1972 Depression Screening 1984 Preventative Health Evaluation 1990 Cervical Cancer Screening (Pap Smear) 1993 Colon Cancer Screening (Colonoscopy) 2017 Breast Cancer Screening (Mammogram) 2022 COVID-19 Vaccine ( season) 2024 09/06/2021 DTap / Tdap / Td (3 - Td or Tdap) 08/19/2030 08/19/2020, 10/10/2009 Pneumococcal Vaccine Aged Out 12/11/2014 No long er eligible based on patient's age to complete this topic Shingrix-Zoster Vaccine Completed 11/16/2022, 07/24 Influenza Vaccine Completed 07/07/2024, , 07/24/2022, Additional history exists RSV Ped < 20 months Aged Out No longe r eligible based on patient's age to complete this topic Care Teams Assessment Manager Relationship Specialty Start Date End Date Capo Nunes MD [address] [place] [address] PCP - General Internal Medicine 07/06/23
--- OUTSIDE RECORDS SUMMARY | 2025-01-09 08:05 | XMS_ITS ---
Author Name [facility] Organization Unknown History of Medication Use Medication Directions Dispensed Refills Start Date End Date Stat levothyroxine (SYNTHROID) tablet 50 mcg Take 1 tablet (50 mcg total) by mouth daily. 04/08/2023 active Riboflavin 400 MG TABS 07/04/2023 active gabapentin (NEURONTIN) 300 MG capsule Take 1 capsule (300 mg total) by mouth every night at bedtime. 05/26/2023 active Nasacort Allergy 24HR 55 MCG/ACT AERO 05/23/2023 active montelukast (SINGULAIR) 10 MG tablet 06/04/2023 active EPINEPHrine 0.3 MG/0.3ML SOAJ 06/24/2023 active Problems Problem Status Onset Date Problem Type Date of Resoluti on Source Chronic non-specific white matter lesions on MRI active EncounterDiagnosisAct [facility] MG Multiple sclerosis (HCC) active EncounterDiagnosisAct [facility] Cognitive changes active EncounterDiagnosisAct [facility]THNEMG
--- OUTSIDE RECORDS SUMMARY | 2025-01-09 08:05 | XMS_ITS | Clinical Summary ---
Author Organization [employer] Address [address] [place] [address] Care Team Providers Care Tagman Name Role Phone Capo Nunes MD Primary Care Provider Unavail able Allergies Active Allergy Reactions Criticality Noted Date Comments Amoxicillin 06/03/2021 Erythromycin Nausea And Vomiting 04/07/2011 Penicillins Nausea And Vomiting,Rash Low 10/10/2009 Venom-Wasp 11/03/2019 Medications albuterol HFA (PROVENTIL HFA) 90 mcg/actuation inhaler Inhale 2 puffs. 8 Active budesonide-form oteroL (SYMBICORT) 160-4.5 mcg/actuation inhaler Inhale 2 puffs. 5 Active buPROPion XL (WELLBUTRIN XL) 150 mg 24 hr tablet Take 150 mg by mouth. 1 Active clonazePAM (KlonoPIN) 0.5 mg tablet 1-2 po qhs prn anxiety or insomnia 1 Active EPINEPHrine 0.3 mg/0.3 mL syringe Infuse into a venous catheter. 0 Active etonogestreL-et hinyl estradioL (NUVARING) 0.12-0.015 mg/24 hr vaginal ring Insert into the vagina. Active levothyroxine (SYNTHROID) 50 mcg tablet TAKE 1 TABLET BY MOUTH DAILY 1 Active montelukast (SINGULAIR) 10 mg tablet Take 10 mg by mouth. 1 Active ondansetron (ZOFRAN) 4 mg tablet Take 4-8 mg by mouth. 1 Active SUMAtriptan (IMITREX) 100 mg tablet TAKE 1 TABLET AT LEAST 2 HOURS BETWEEN DOSES NEEDED DAILY 1 Active topiramate (TOPAMAX) 100 mg tablet TAKE 1 TABLET DAILY 1 Active triamcinolone (NASACORT) 55 mcg nasal inhaler Administer 2 sprays into affected nostril(s). 2 Active venlafaxine XR (EFFEXOR-XR) 75 mg 24 hr capsule Take 75 mg by mouth. 2 Active Active Problems Problem Noted Date Diagnosed Date Somatization disorder 12/26/2021 Pain of upper extremity 12/26/2021 Myofascial pain 12/26/2021 Hearing loss 12/26/2021 Bipolar disorder 12/26/2021 Overview (12/26/2021): By patient report Allergic rhinitis 12/26/2021 Adjustment disorder with anxious mood 12/26/2021 Multiple sclerosis 03/05/2021 Overview (12/26/2021): Possible History of COVID-19 11/12/2020 Overview (12/26/2021): 11/24 Eczema 10/13/2015 Overview (12/26/2021): Dr Darya Ferrer 05/14/2015 Overview (12/26/2021): Possible / Anxiety 05/18/2014 Spondylolysis 05/15/2014 Hypothyroidism 05/15/2014 Spinal stenosis in cervical region 09/14/2013 Back pain 05/20/2013 Overview (12/26/2021): Dr Maravilla TMJ (temporomandibular joint syndrome) 3 TMJ (dislocation of temporomandibular joint) 04/2013 IBS (irritable bowel syndrome) 11/10/2012 Overview (12/26/2021): Alt C/D. Headache, chronic migraine w ithout aura, intractable, with status 11/10/2012 Mild persistent asthma 10/10/2009 Depression, major, recurrent, moderate 0 Overview (12/26/2021): More anxiety than depression; also, bad arachnophobia. Prozac may have helped before Interstitial cystitis 07/26/2006 Overview (12/26/2021): Dr Ramachandran Endometriosis 08/14/1997 Overview (12/26/2021): S/p laparoscopy 11/13; also leiomyoma (vaginal nodule) Chronic sinusitis 1976 Family History Medical History Relation Comments Testicular cancer Brother Melanoma Father Heart disease Mother Hypertension Mother Macular degeneration Mother Macular degeneration Sister Relation Status Comments Brother Alive Father Mother Alive Sister Alive Social History Tobacco Use Types Packs/Day Years Used Date Smoking Tobacco: Never Smokeless Tobacco: Never Alcohol Use Standard Drinks/Week Comments Yes 1 (1 standard drink = 0.6 oz pur e alcohol) PHQ-2 Answer Date Recorded Depression Risk (PHQ2) Score 0 Comments Unknown Sex and Gender Information Value Date Recorded Sex Assigned at Female 12/25/2021 12:34 PM [facility] Legal Sex Female 6:05 AM [facility] Gender Identity Female 12/25/2021 12:34 PM [facility] Sexual Orientation Straight 12/25/2021 12 :34 PM [facility] Last Filed Vital Signs Vital Sign Reading Time Taken Comments Blood Pressure 119/80 12/26/2021 10:53 AM EDT Pulse 67 12/26/2021 10:53 AM EDT Temperature 36.7 ??C (98 ??F) 12/26/2021 10:53 AM EDT Respiratory Rate - - Oxygen Saturation 98% 12/26/2021 10:53 AM EDT Inhaled Oxygen Concentration - - Weight 62.8 kg (138 lb 6.4 oz) 12/26/2021 10:53 AM EDT Height 153.8 cm (5' 0.55 ) 06/03/2021 11:04 AM E DT Body Mass Index 26.54 06/03/2021 11:04 AM EDT Plan of Treatment Health Maintenance Due Date Last Done Comments CT Colonography 1972 Cologuard 1972 Colonoscopy 1972 Colorectal Cancer Screening 1972 FOBT/FIT 1972 Hepatitis C Screening 1972 Sigmoidoscopy 1972 PHQ-9 Depression Screen 1984 SANDY-7 Anxiety Screen 1990 Cervical Cancer Screening (Pap/HPV) 1993 Pneumococcal Vaccine: 50+ Ye ars (2 of 2 - PCV) 12/12/2015 12/11/2014 Annual Preventive Exam 12/23/2021 , 12/12/2019, 04/07/2019, Additional history exists Mammogram 03/29/2022 03/29/2020, 03/29/2020 Zoster Vaccines (2 of 2) 09/18/2022 07/24/2022 COVID-19 Vaccine (4 - 2023-2 5 season) 2024 09/06/2021, 02/13/2021, 01/16/2021 Influenza Vaccine (Season Ended) 2025 07/24/2022, 06/26/2021, 06/26/2021, Additional history exists DTaP,Tdap,and Td Vaccines (3 - Td or Tdap) 08/19/2030 08/19/2020, 10/10/2009 RSV Vaccine (SCDM) (1 - 1-do se 75+ series) 2047 Insurance [employer] Care Teams Tagman Relationship Specialty Start Date End Date Cpao Nunes MD PCP - General Internal Medicine 06/03/21
--- OUTSIDE RECORDS SUMMARY | 2025-01-09 08:05 | XMS_ITS | Clinical Summary ---
Author Organization [address] [facility] Address [address] [place] [address] Phone Care Team Providers Care Credit Compliance Officer Name Role Phone Capo Nunes MD Primary Care Provider [phone] Allergies Active Allergy Reactions Criticality Noted Date Comments Amoxicillin 11/27/2010 Erythromycin Nausea And Vomiting 04/07/2011 Venom-Wasp 11/03/2019 Wasp Venom Protein Medications albuterol HFA (PROAIR HFA ; PROVENTIL HFA ; VENTOLIN HFA) 90 mcg/actuation inhaler Inhale 2 Puffs into the lungs every 4 hours as needed for Cough or Wheezing. 04/08/2018 Active cetirizine (ZyrTEC) 10 mg tablet Take 1 tablet by mouth 2 times daily as needed for Allergies. 08/27/2021 Active EPINEPHrine (EpiPen 2-Marcin) 0.3 mg/0.3 mL injection Inject as directed. 11/03/2019 Active levothyroxine (SYNTHROID, LEVOTHROID) 50 mcg tablet Take 1 tablet by mouth daily. 12/17/2021 Active ondansetron (ZOFRAN) 4 mg tablet Take 1-2 Tablets by mouth every 8 hours as needed for Nausea. 02/03/2022 Active SUMAtriptan (IMITREX) 100 mg tablet TAKE 1 TABLET AT LEAST 2 HOURS BETWEEN DOSES NEEDED DAILY 04/05/2021 Active triamcinolone (NASACORT) 55 mcg nasal inhaler 2 Sprays by Nasal route daily. 11/24/2021 Active buPROPion XL (WELLBUTRIN XL) 300 mg 24 hr tablet Take 1 tablet (300 mg total) by mouth 1 (one) time each day. Do not crush, chew, or split. Active gabapentin (NEURONTIN) 300 mg capsule Take 1 capsule (300 mg total) by mouth 3 (three) times a day. Active Active Problems Problem Noted Date Diagnosed Date Multiple sclerosis 03/05/2021 Overview (09/08/2024): Possible History of COVID-19 11/12/2020 Overview (09/08/2024): 2/ Chronic neck pain 02/26/2019 Overview (09/08/2024): PVSS Eczema 10/13/2015 Overview (09/08/2024): Dr Lackey Pancreatitis 05/14/2015 Overview (09/08/2024): Possible 04/17 Anxiety 05/18/2014 Hypothyroidism 05/15/2014 Back pain 05/20/2013 Overview (09/08/2024): Dr Maravilla Chronic headache disorder 11/10/2012 Overview (09/08/2024): Dr Penn IBS (irritable bowel syndrome) 11/10/2012 Overview (09/08/2024): Alt C/D. TMJ (temporomandibular joint syndrome) 3 Depression, major, recurrent, moderate 0 Overview (09/08/2024): More anxiety than depression; also, bad arachnophobia. Prozac may have helped before Endometriosis 10/10/2009 Overview (09/08/2024): S/p laparoscopy 2/10; also leiomyoma (vaginal nodule) Interstitial cystitis 10/10/2009 Overview (09/08/2024): Dr Ramachandran Mild persistent asthma 10/10/2009 Vasovagal episode 10/10/2009 Overview (09/08/2024): After blood draws Encounters Date Type Department Care Team Description 12/04/2024 8:00 AM EST Office Visit [facility] [address] [facility] [address] [place] [address] Helen Tavera MD White matter lesion of central nervous system (Primary Dx) from Last 3 Months Immunizations Name Administration Dates Next Due H1N1 Inj Preservative Free 10/10/2009 Influenza Quadravalent, MDCK , 0.5ml, preservative free (Flucelvax) 6mo and older 06/26/2021 Influenza Quadravalent, MDCK , 0.5ml, with preservative (Flucelvax) 6mo and older 06/30/2018,06/17/2017 Influenza trivalent, with pr eservative (Fluzone; Afluria) 6mo and older 06/04/2020,06/30/2016,06/13/2015,06/29,07/26/2013,07/17/2011,10/17/2010 Moderna SARS-CoV-2 COVID-19, mRNA, LNP-S, preservative free 02/13/2021,01/16/2021 Pneumococcal polysaccharide 23 valent (Pneumovax 23) 2yo and older 12/11/2014 Td Tetanus diptheria (Tdvax) 7yo and older 08/19/2020 Tdap Tetanus diptheria acell ular pertussis (Boostrix; Adacel) 7yo and older 10/10/2009 Surgical History Surgery Date Site/Laterality Comments ENDOMETRIAL FULGURATION PROCEDURE:LAPAROSCOPIC ENDOMETRIOSIS FULGURATION LUMBAR LAMINECTOMY PROCEDURE:LUMBAR LAMINECTOMY WISDOM TOOTH EXTRACTION PROCEDURE:WISDOM TOOTH EXTRACTION Medical History Medical History Date Comments Endometriosis DX:Endometriosis Asthma DX:Asthma Seasonal allergies DX:Seasonal a llergies Migraine DX:Migraine Spinal stenosis DX:Spinal stenos is Hypothyroidism DX:Hypothyroidis m Social History Tobacco Use Types Packs/Day Years Used Date Smoking Tobacco: Never Assessed Comments Unknown Sex and Gender Information Value Date Recorded Sex Assigned at Not on file Legal Sex Female 8:40 AM EST Gender Identity Not on file Sexual Orientation Not on file Obstetrics History Last Filed Vital Signs Vital Sign Reading Time Taken Comments Blood Pressure 120/68 12/04/2024 8:28 AM EST Pulse 98 12/04/2024 8:28 AM EST Temperature 36.2 ??C (97.1 ??F) 12/04/2024 8:28 AM ES T Respiratory Rate - - Oxygen Saturation 98% 12/04/2024 8:28 AM EST Inhaled Oxygen Concentration - - Weight 49 kg (108 lb) 12/04/2024 8:28 AM EST Height 154.9 cm (5' 1 ) 12/04/2024 8:28 AM EST Body Mass Index 20.41 12/04/2024 8:28 AM EST Plan of Treatment Upcoming Encounters Date Type Department Care Team (Late st Contact Info) Description 06/07/2025 8:00 AM EDT Office Visit [facility] [address] [facility] [address] [place] [address] Georgie Villanueva PA [address] [facility] [address] [place] [address] Health Maintenance Due Date Last Done Comments Breast Cancer Screening 1972 Hepatitis B Vaccines (1 of 3 - 19+ 3-dose series) 1991 Pneumococcal Vaccine: 50+ Years (2 of 2 - PCV) 12/12/2015 12/11/2014 Pneumococcal Vaccine: Pediatrics (0 to 5 Years) and At-Risk Patients (6 to 64 Years) (2 of 2 - PCV) 12/12/2015 12/11/2014 Colorectal Cancer Screening: Colonoscopy 09/06/2022 Depression Screening 09/06/2022 HIV Screening 09/06/2022 Social Influencers of Health Screening 09/06/2022 Cervical Cancer Screening: Pap Smear 11/04/2022 11/04/2019 COVID-19 Vaccine ( season) 2024 09/06/2021, 02/13/2021, 01/16/2021 DTaP,Tdap,and Td Vaccines (4 - Td or Tdap) 07/07/2034 07/07/2024, 08/19/2020, 10/10/2009 Hepatitis C Screening Completed 06/08/2010 Zoster Vaccines Completed 11/16/2022, 07/24/2022 Influenza Vaccine Completed 07/07/2024, , 07/24/2022, Additional history exists HIB Vaccines Aged Out No longer eligi ble based on patient's age to complete this topic HPV Vaccines Aged Out No longer eligi ble based on patient's age to complete this topic Hepatitis A Vaccines Aged Out No long er eligible based on patient's age to complete this topic IPV Vaccines Aged Out No longer eligi ble based on patient's age to complete this topic MMR Vaccines Aged Out No longer eligi ble based on patient's age to complete this topic Meningococcal ACWY Vaccine Aged Out N o longer eligible based on patient's age to complete this topic Meningococcal B Vaccine Aged Out No l onger eligible based on patient's age to complete this topic RSV Immunization Patients Under 20 months Aged Out No longer eligible based on patient's age to complete this topic Varicella Vaccines Aged Out No longer eligible based on patient's age to complete this topic Procedures Procedure Name Priority Date/Time Associated Diagnosis Comments EXTERNAL MRI REPORT 12/22/2024 PAP SMEAR Routine 11/04/2019 HEPATITIS C SCREENING Routine 06/08/2010 from Last 3 Months or Most Recently Relevant to Health Maintenance Results * External MRI Report (12/22/2024) Anatomical Region Laterality Modality Magnetic Resonan ce Provider [facility] MRI PROCEDURES Final Result * Pap Smear (11/04/2019) Pap smear no interpretation , abstracted Historical Provider HEALTH MAINTENANCE Final Result * Hepatitis C Screening (06/08/2010) Hepatitis C Screening abstracted Historical Provider HEALTH MAINTENANCE Final Result from Last 3 Months or Most Recently Relevant to Health Maintenance Insurance [employer] Care Teams Credit Compliance Officer Relationship Specialty Start Date End Date Capo Nunes MD [id number] [place], [place] [id number] PCP - General 07/06/23
--- OUTSIDE RECORDS SUMMARY | 2025-01-09 08:05 | XMS_ITS | Encounter Summary ---
Author Organization [facility] Address [address] [place] [address] Care Team Providers Care Hydrochloric Manufacturing Supervisor Name Role Phone Capo Nunes MD Primary Care Provider [phone] Encounter Details Date Type Department Care Team (Late st Contact Info) Description 08/04/2024 7:50 AM EDT Hospital Encounter TH HISTORIC ENCOUNTERS EASTERN CONVERSION ONLY Georgie Villanueva PA [address] [place] [address] Social History Tobacco Use Types Packs/Day Years [...] Description 06/07/2025 8:00 AM EDT Office Visit [facility] [address] [place] [address] Georgie Villanueva PA [address] [facility] [address] [place] [address] documented as of this encounter Visit Diagnoses Not on filedocumented in this encounter Care Teams Hydrochloric Manufacturing Supervisor Relationship Specialty Start Date End Date Capo Nunes MD [address] [place] [id number] PCP - General 07/06/23 documented as of this encounter
== END 2025-01-09 08:28 | disposition home or self-care (01) ==
LOC: HO.HSMS 08:00
PROVIDERS: PCP Internal Medicine; Visit Provider Nurse Practitioner Family
DX: G43.009 Migraine without aura, not intractable, without status migrainosus (principal); R90.82 White matter disease, unspecified; G47.9 Sleep disorder, unspecified
CPT/HCPCS: 99214

== ENCOUNTER 2025-09-11 08:02 | Outpatient (AMB) | payer OTHER, SELFPAY ==
--- OUTSIDE RECORDS SUMMARY | 2024-08-04 06:50 | XMS_ITS | Encounter Summary ---
Author Organization [facility] Address [address] [place] [address] Care Team Providers Care Wrapper Operator Name Role Phone Cpao Nunes MD Primary Care Provider [phone] Encounter Details Date Type Department Care Team (Late st Contact Info) Description 08/04/2024 7:50 AM EDT Hospital Encounter TH HISTORIC ENCOUNTERS [facility] ONLY Georgie Villanueva, PA [address] [place] [id number] Social History Tobacco Use Types Packs/Day Years Used Date Smoking Tobacco: Never Assessed Comments Unknown Sex and Gender Information Value Date Recorded Sex Assigned at Not on file Legal Sex Female 8:40 AM EST Gender Identity Not on file Sexual Orientation Not on file documented as of this encounter Last Filed Vital Signs Vital Sign Reading Time Taken Comments Blood Pressure 116/75 08/04/2024 8:07 AM EDT Sit ting Left arm Pulse 80 08/04/2024 8:07 AM EDT Temperature - - Respiratory Rate - - Oxygen Saturation - - Inhaled Oxygen Concentration - - Weight 46.7 kg (103 lb) 08/04/2024 8:07 AM EDT Height 152.4 cm (5') 08/04/2024 8:07 AM EDT Body Mass Index 20.12 08/04/2024 8:07 AM EDT documented in this encounter Plan of Treatment Upcoming Encounters Date Type Department Care Team (Late st Contact Info) Description 12/12/2025 8:30 AM EDT Office Visit [facility] [address] [place] [address] Helen Tavera MD [address] [place] [address] documented as of this encounter Visit Diagnoses Not on filedocumented in this encounter Care Teams Wrapper Operator Relationship Specialty Start Date End Date Capo Nunes MD [id number] [place] [address] PCP - General 07/06/23 documented as of this encounter
[2025-09-11 08:04] VITALS: BP 120/84; BMI 20.5
--- NOTE | 2025-09-11 08:04 | A.OFFVIS_ITS ---
Vital Signs 09/11/25 08:04 Height 5 ft 2 in Weight 112 lb BMI 20.5 BP 120/84 Blood Pressure Location Lt brachial Position Sitting Intake Visit Reasons: 9 mo follow up Intake Note: Patient presents for follow up migraine with aura. melatonin trial Global Sales Manager Required: No Accompanied by: Self / Same As Patient Allergies amoxicillin Allergy (Unknown, Verified 09/11/25 08:04) Unknown bee venom protein (honey bee) Allergy (Unknown, Verified 09/11/25 08:04) Unknown erythromycin base (From Erythrocin) Allergy (Unknown, Verified 09/11/25 08:04) Unknown penicillin G Allergy (Unknown, Verified 09/11/25 08:04) Unknown Medication List - Last Reconciled 09/11/25 by CHARLINE Bhandari albuterol sulfate 90 mcg/actuation inhalation ascorbic acid (vitamin C) PO DAILY azelastine intranasal biotin PO DAILY bupropion HCl XL 300 mg PO DAILY cholecalciferol (vitamin D3) PO DAILY eszopiclone (Lunesta) 2 mg PO BEDTIME gabapentin 400 mg PO BEDTIME levothyroxine 50 mcg PO DAILY melatonin 3 - 6 mg (1 - 2 x 3 mg) PO DAILY PRN 90 days norethindrone (contraceptive) (Incassia) 0.35 mg PO DAILY riboflavin (vitamin B2) 400 mg PO DAILY 90 days rizatriptan 10 mg PO Q2H PRN 21 days triamcinolone acetonide (Nasacort) sprays intranasal venlafaxine 75 mg PO DAILY vitamin B complex PO DAILY HPI Comments Details: 55-year-old female presenting with migraine without aura. Interval history includes: Endoscopy, which showed gastritis Shingles (April 2025) w/ residual post-herpetic pain- right buttock through rectum/perineum/right upper inner thigh Interval dose of reclast for osteoporosis She has started doing light weights She reports that she had increased headaches after she developed the shingles. She saw the [facility] clinic around that time, and increased her gabapentin and they switched her sumatriptan to rizatriptan, which is more effective- usually needs just 1 tab versus 2 with the sumatriptan. Now needing to take Rizatriptan about once a week, and can function thereafter. Her sleep has been better- continues to use Lunesta. Denies parasomnias, She notes that she is now more prone to constipation rather than loose stools- and GI has started her on anti-constipation tx which is starting to help but not fully. She is due for annual brain MRI in December- through the [facility]- but so far the imaging has been stable. Baseline headache characteristics: Prodrome symptoms of tiredness. Severe, Over the top of head- throbbing pain a/w photophobia, phonophobia, osmophobia, nausea, tiredness, brain fog. Denies any parestehsias, foacal weakness, autonomic s/s. Postdrome of Headache may linger [facility] Medical History Hypothyroidism GERD (gastroesophageal reflux disease) Arthritis Asthma Depression Surgical History History of lumbar puncture H/O laparoscopy [place] teeth extracted History of lumbar surgery Family History Father Metastatic melanoma Hypertension Cirrhosis of liver Mother Hypertension Heart disease Brother Testicular cancer Sister Hypertension Sister Hypertension Social History Alcohol intake: current Alcohol intake frequency: holidays/special occasions only Patient Tobacco Use Status: Never used Tobacco Physical Exam Vital Signs: Last Vital Signs BP 120/84 09/11/25 08:04 BMI result Body Mass Index 20.5 Const General: cooperative and no acute distress Orientation/consciousness: patient oriented x3 Resp Effort & Inspection: normal respiratory effort and able to speak in complete sentences Neuro General: patient oriented x3 Cranial nerves: Yes CN's II-XII intact bilaterally Cognition (Neuro): normal cognition Psych Appearance: grossly normal Mental Status: mental status grossly normal Speech and movement: Normal speech and movement present Affect: normal affect Attitude: cooperative Assessment & Plan Assessment & Plan (1) Migraine without aura: Code(s): G43.009 - Migraine without aura, not intractable, without status migrainosus Category: Medical (2) White matter abnormality on MRI of brain: Comment: f/b the [facility] Code(s): R90.82 - White matter disease, unspecified Category: Medical (3) Sleep difficulties: Code(s): G47.9 - Sleep disorder, unspecified Category: Medical Plan Discussion Notes I discussed with the patient the management of migraine with preventative treatment using riboflavin and the acute management with sumatriptan. The results for the cervical white matter changes appear stable, which is reassuring. The plan for a gastroenterological evaluation and endoscopy was discussed as necessary due to ongoing gastrointestinal symptoms. I advised the patient to follow up with endocrinology regarding osteoporosis to identify potential treatments and causes. We discussed the importance of nutritional intake and reintroducing meat into the diet to address nutritional deficiencies possibly contributing to osteoporosis. Follow-up is suggested in six to nine months unless symptoms warrant earlier attention. Patient was informed and verbally consented to the use of an ambient scribe for clinic note documentation during this visit. Plan and Patient Instructions For sleep: HST- normal. Continue to optimize sleep hygiene i and maintain consistent wake-up time. Continue Melatoinin 3-6mg q evening at sunset. Continue Lunesta at bedtime. Continue Buproprion, Vit B's earlier in am- preferably just after arising. ? For nonspecific bilateral cerebral white matter changes: Recent brain MRI showed stable white matter changes. F/u w/ [facility] as scheduled. ? For overall headache management: Continue optimizing good self-care, including but not limited to maintaining a healthy diet,? adequate fluid intake, adequate sleep, and engaging in regular physical activity. ? For acute headache treatment: Continue Rizatriptan 10mg tab, 1/2 - 1 tab (5-10mg) at onset of headache, may repeat in 2 hours. Max of 2 tabs (200mg) per 24 hours. * May adjunct with OTC Tylenol 650mg every 4 hours, Ibuprofen (liquigel) 600mg every 6 hours, or Naproxen (liquigel) 440mg every 12 hrs as needed. May try warm compresses, migraine heat tx's- info shared. Previous acute migraine medication trials: Sumatriptan- not as effective as Rizatriptan. Acute migraine medication contraindications: None ? For headache prevention medication: Continue Riboflavin 400mg daily in the morning Consider resuming Magnesium 400-500mg daily at bedtime- may help with constipation. Continue to hold Topiramate. If headaches worsen, pt advised to notify us, would not resume Topiramate as this may exacerbate decreased appetite and wt loss. Previous migraine prevention medication trials: Magnesium caused diarrhea. Migraine prevention medication contraindications: Amitriptyline- for sleep- caused dry mouth. ? Pt to follow-up in 9 months or sooner prn. Medications: New rizatriptan do not exceed 3 doses per 24 hrs 10 mg PO Q2H PRN 52.0 tabs 1RF migraine headache 21 days Coding Level of Care Code Est Pt Level 4 (15456) Diagnoses Migraine without aura G43.009 White matter abnormality on MRI of brain R90.82 Sleep difficulties G47.9
--- OUTSIDE RECORDS SUMMARY | 2025-09-11 08:26 | XMS_ITS | Encounter Summary ---
Author Organization [facility] Prior to 08/04/2024 Address [address] [place] [address] Care Team Providers Care Aquatic Laborer Name Role Phone Capo Nunes MD Primary Care Provider [facility], Pcp Primary Care Provider Unavailabl e Reason for Visit * Reason Onset Date Comments Medication Review 01/26/2014 Encounter Details Date Type Department Care Team Description 01/26/2014 Pt. Non Urgent Medic al Question Adult Medicine [address] [address] Capo Nunes MD Social History Tobacco Use Types Packs/Day Years Used Date Smoking Tobacco: Never Smokeless Tobacco: Never Alcohol Use Standard Drinks/Week Comments Yes 0 (1 standard drink = 0.6 oz pur e alcohol) 1 drink, 2-3 times per week Sex Assigned at Date Recorded Female 08/15/2019 3:[address] documented as of this encounter Progress Notes * Beth Benitez L.P.NIvanna - 01/26/2014 2:31 PM EDTFrom: IRIS PIERCE To: Capo Nunes MD Sent: WedJan 26, 2014 1:51 PM Subject: Medication switch Dr. Des Vidales wanted me to message him about my medication switch, how it is going. I am now off of the zoloft and only taking the trazadone at night. I'm taking the 100mg, which seems to be helping so far, it has only been a week that I've been doing that. Sleeping seems to be good. I am having a lot of dizziness and light headed feeling still. Not sure if that is still from the withdrawal of the zoloft or from the neck injury, as the neck injury is still causing headaches as well. Thank you, Iris Pierce If any questions please call or email me documented in this encounter Plan of Treatment Not on file documented as of this encounter Visit Diagnoses Not on filedocumented in this encounter Care Teams Aquatic Laborer Relationship Specialty Start Date End Date Capo Nunes MD PCP - General 09/23/09 02/10/22 [facility], Pcp PCP - General Internal Medicine 02/11/22 documented as of this encounter
--- OUTSIDE RECORDS SUMMARY | 2025-09-11 08:26 | XMS_ITS | Encounter Summary ---
Author Organization [facility] Prior to 08/04/2024 Address [address] [place] [address] Care Team Providers Care Oncology Technician Name Role Phone Capo Nunes MD Primary Care Provider [facility], Pcp Primary Care Provider Unavailabl e Reason for Visit * Reason Comments E-prescribe Rx Request Encounter Details Date Type Department Care Team Description 12/07/2011 Refill Medicine/Pediatrics [address] [phone] Capo Nunes MD E-prescribe Rx Request Social History Tobacco Use Types Packs/Day Years Used Date Smoking Tobacco: Never Smokeless Tobacco: Never Alcohol Use Standard Drinks/Week Comments Yes 0 (1 standard drink = 0.6 oz pur e alcohol) 1 drink, 2-3 times per week Sex Assigned at Date Recorded Female 08/15/2019 3:[address] documented as of this encounter Miscellaneous Notes * Telephone Encounter - Jacob Pacheco M.A. - 12/07/2011 11:52 AM EST 1.30.12 Component Value Date ALB 4.3 06/08/2010 SGOT 24 06/08/2010 SGPT 19 06/08/2010 TBILI 0.5 06/08/2010 DBILI 0.1 06/08/2010 IBILI 0.4 06/08/2010 ALKPHOS 106 06/08/2010 TP 7.2 06/08/2010 * Telephone Encounter - Jadyn Schaffer - 12/07/2011 11:50 AM EST WHEN WAS THE PATIENT'S LAST APPOINTMENT IN ADULT MEDICINE? 11/02/2011 WHEN WAS THE LAST TIME THE PATIENT SAW THEIR PCP? Same as above Does patient have an upcoming appointment? No-patient will call to book appointment (THE MEDICATION REQUESTED IS ON THE MED LIST ABOVE) All of the medications requested were on the CURRENT MEDS list Did you check the Pharmacy information above?: NO Is this a mail order prescription request? NO Indicate how soon the patient needs the script: BY THE END OF THE DAY Patient would like script to be: FAXED TO PHARMACY If the patients Provider is not in tell the patient that the covering provider will get the request. Patients current insurance carrier is: Payor: -[employer] FFS Plan: [employer] $25 [address] [id number] Product Type: HMO [id number] documented in this encounter Plan of Treatment Not on file documented as of this encounter Visit Diagnoses Not on filedocumented in this encounter Care Teams Oncology Technician Relationship Specialty Start Date End Date Capo Nunes MD PCP - General 09/23/09 02/10/22 [facility], [facility], Pcp PCP - General Internal Medicine 02/11/22 documented as of this encounter
--- OUTSIDE RECORDS SUMMARY | 2025-09-11 08:26 | XMS_ITS ---
Author Name [facility] Organization Unknown History of Medication Use Medication Directions Dispensed Refills Start Date End Date Stat us Riboflavin 400 MG TABS 07/04/2023 active zolpidem (AMBIEN) 5 MG tablet 07/04/2023 active oxyCODONE-acetaminophe n (PERCOCET) 5-325 MG per tablet 07/03/2023 active EPINEPHrine 0.3 MG/0.3ML SOAJ 06/24/2023 active SUMAtriptan (IMITREX) 100 MG tablet TAKE 1 TABLET BY MOUTH EVERY 2 HOURS NEEDED FOR MIGRAINE HEADACHE FOR 30 DAYS. MAX 2 TABS/DAY 06/19/2023 active montelukast (SINGULAIR) 10 MG tablet 06/04/2023 active Symbicort 160-4.5 MCG/ACT inhaler 05/29/2023 active gabapentin (NEURONTIN) 300 MG capsule Take 1 capsule (300 mg total) by mouth every night at bedtime. 05/26/2023 active Nasacort Allergy 24HR 55 MCG/ACT AERO 05/23/2023 active topiramate (TOPAMAX) 100 MG tablet 05/15/2023 active albuterol 108 (90 Base) MCG/ACT inhaler 04/08/2023 act christinao levothyroxine (SYNTHROID) tablet 50 mcg Take 1 tablet (50 mcg total) by mouth daily. 04/08/2023 active buPROPion (WELLBUTRIN XL) 300 MG 24 hr tablet Take by mouth. 11/30/2022 active cetirizine (ZyrTEC) 10 MG tablet Take 1 tablet (10 mg total) by mouth. 08/27/2021 active Allergies Allergen Reaction Severity Comment Documented Date Source Statu s WASP VENOM PROTEIN 11/03/2019 [facility] a ctive ERYTHROMYCIN NAUSEA AND VOMITING 04/07/2011 [facility] active Problems Problem Status Onset Date Problem Type Date of Resoluti on Source Cognitive changes active EncounterDiagnosisAct [facility] Chronic non-specific white matter lesions on MRI active EncounterDiagnosisAct [facility] Multiple sclerosis (HCC) active EncounterDiagnosisAct [facility] Care Team Organization Name Specialty Phone Email Start Date End Da te [facility] Termed, PROVIDER Primary Care 08/11/202205/04
--- OUTSIDE RECORDS SUMMARY | 2025-09-11 08:26 | XMS_ITS | Encounter Summary ---
Author Organization [facility] Prior to 08/04/2024 Address [address] [place] [address] Care Team Providers Care Water Conservation Specialist Name Role Phone Capo Nunes MD Primary Care Provider [facility], Pcp Primary Care Provider Unavailabl e Reason for Visit * Reason Onset Date Comments Advice 02/09/2014 Encounter Details Date Type Department Care Team Description 02/09/2014 Pt. Non Urgent Medical Question Medicine/Pediatrics [address] [phone] Capo Nunes MD Social History Tobacco Use Types Packs/Day Years Used Date Smoking Tobacco: Never Smokeless Tobacco: Never Alcohol Use Standard Drinks/Week Comments Yes 0 (1 standard drink = 0.6 oz pur e alcohol) 1 drink, 2-3 times per week Sex Assigned at Date Recorded Female 08/15/2019 3:[address] documented as of this encounter Progress Notes * Mary Malloy L.P.NIvanna - 02/09/2014 1:15 PM EDTFrom: IRIS PIERCE To: Capo Nunes MD Sent: WedFebruary 09, 2014 1:10 PM Subject: Follow up on medication for Dr. Des Vidales, I'm not feeling lightheaded or dizzy like I was before, that has subsided a great deal since being off of the zoloft. Have been sleeping great at night with the trazadone. Only thing now is same as last time I went off the zoloft, being very short tempered and extremely irritable, snapping and thenwill have the crying breakdown, so hopefully this will also subside soon as well. Thank you, Iris Pierce documented in this encounter Plan of Treatment Not on file documented as of this encounter Visit Diagnoses Not on filedocumented in this encounter Care Teams Water Conservation Specialist Relationship Specialty Start Date End Date Capo Nunes MD PCP - General 09/23/09 02/10/22 [facility], Pcp PCP - General Internal Medicine 02/11/22 documented as of this encounter
--- OUTSIDE RECORDS SUMMARY | 2025-09-11 08:26 | XMS_ITS | Encounter Summary ---
Author Organization [facility] Prior to 08/04/2024 Address [address] [place] [address] Care Team Providers Care Entertainment & Media Correspondent Name Role Phone Capo Nunes MD Primary Care Provider Unavail able [facility], Pcp Primary Care Provider Unavailabl e Encounter Details Date Type Department Care Team Description 04/11/[address] [facility] [address] [place] [address] Md Boby Social History Tobacco Use Types Packs/Day Years Used Date Smoking Tobacco: Never Smokeless Tobacco: Never Alcohol Use Standard Drinks/Week Comments Yes 0 (1 standard drink = 0.6 oz pur e alcohol) 1 drink, 2-3 times per week Sex Assigned at Date Recorded Female 08/15/2019 3:[address] documented as of this encounter Plan of Treatment Not on file documented as of this encounter Visit Diagnoses Not on filedocumented in this encounter Care Teams Entertainment & Media Correspondent Relationship Specialty Start Date End Date Capo Nunes MD PCP - General 09/23/09 02/10/22 [facility], Pcp PCP - General Internal Medicine 02/11/22 documented as of this encounter
--- OUTSIDE RECORDS SUMMARY | 2025-09-11 08:26 | XMS_ITS | Encounter Summary ---
Author Organization [facility] Prior to 08/04/[address] [place] [id number] Care Team Providers Care Potato Inspector Name Role Phone Capo Nunes MD Primary Care Provider [facility], Pcp Primary Care Provider Unavailabl e Reason for Visit * Reason Onset Date Comments Medication 02/12/2012 Encounter Details Date Type Department Care Team Description 02/12/2012 Pt. Non Urgent Medical Question Medicine/Pediatrics [address] [phone] Capo Nunes MD Social History Tobacco Use Types Packs/Day Years Used Date Smoking Tobacco: Never Smokeless Tobacco: Never Alcohol Use Standard Drinks/Week Comments Yes 0 (1 standard drink = 0.6 oz pur e alcohol) 1 drink, 2-3 times per week Sex Assigned at Date Recorded Female 08/15/2019 3:[address] documented as of this encounter Progress Notes * Mary LopezPIvannaNIvanna - 02/15/2012 7:53 AM EDTFrom: IRIS PIERCE To: Capo Nunes MD Sent: WedFebruary 12, 2012 10:40 PM Subject: Medication Inquiring about switching from Ambien to Ambien CR. documented in this encounter Plan of Treatment Not on file documented as of this encounter Visit Diagnoses Not on filedocumented in this encounter Care Teams Potato Inspector Relationship Specialty Start Date End Date Capo Nunes MD PCP - General 09/23/09 02/10/22 [facility], Pcp PCP - General Internal Medicine 02/11/22 documented as of this encounter
--- OUTSIDE RECORDS SUMMARY | 2025-09-11 08:27 | XMS_ITS | Encounter Summary ---
Author Organization [facility] Prior to 08/04/2024 Address [address] [place] [address] Care Team Providers Care Bus Analyst Name Role Phone Capo Nunes MD Primary Care Provider Unavail able [facility], Pcp Primary Care Provider Unavailabl e Encounter Details Date Type Department Care Team Description 09/19/2015 Core Inspector Report Medical Records [address] [place] [address] Mona Lackey MD Social History Tobacco Use Types Packs/Day Years Used Date Smoking Tobacco: Never Smokeless Tobacco: Never Alcohol Use Standard Drinks/Week Comments Yes 0 (1 standard drink = 0.6 oz pure alcohol) 2-3 drinks per week nothing sense April due to the pain Sex Assigned at Date Recorded Female 08/15/2019 3:[address] documented as of this encounter Plan of Treatment Not on file documented as of this encounter Visit Diagnoses Not on filedocumented in this encounter Care Teams Bus Analyst Relationship Specialty Start Date End Date Capo Nunes MD PCP - General 09/23/09 02/10/22 [facility], Pcp PCP - General Internal Medicine 02/11/22 documented as of this encounter
--- OUTSIDE RECORDS SUMMARY | 2025-09-11 08:27 | XMS_ITS | Encounter Summary ---
Author Organization [facility] Prior to 08/04/2024 Address [address] [place] [address] Care Team Providers Care Food Service Supervisor Name Role Phone Capo Nunes MD Primary Care Provider Unavail able [facility], Pcp Primary Care Provider Unavailabl e Encounter Details Date Type Department Care Team Description 10/14/2017 Home Service Consultant Report Medical Records [address] [place] [address] Consuelo Serrano NP Social History Tobacco Use Types Packs/Day Years [...] on filedocumented in this encounter Care Teams Food Service Supervisor Relationship Specialty Start Date End Date Capo Nunes MD PCP - General 09/23/09 02/10/22 [facility], Pcp PCP - General Internal Medicine 02/11/22 documented as of this encounter
--- OUTSIDE RECORDS SUMMARY | 2025-09-11 08:27 | XMS_ITS | Encounter Summary ---
Author Organization [facility] Prior to 08/04/2024 Address [address] [place] [address] Care Team Providers Care Floor Press Operator Name Role Phone Capo Nunes MD Primary Care Provider Unavail able [facility], Pcp Primary Care Provider Unavailabl e Encounter Details Date Type Department Care Team Description 04/20/2013 Railroad Accountant Report Medical Records [address] [place] [address] Vicki Maravilla MD Social History Tobacco Use Types Packs/Day [...] on filedocumented in this encounter Care Teams Floor Press Operator Relationship Specialty Start Date End Date Capo Nunes MD PCP - General 09/23/09 02/10/22 [facility], Pcp PCP - General Internal Medicine 02/11/22 documented as of this encounter
--- OUTSIDE RECORDS SUMMARY | 2025-09-11 08:27 | XMS_ITS | Encounter Summary ---
Author Organization [facility] Prior to 08/04/2024 Address [address] [place] [address] Care Team Providers Care Dive Superintendent Name Role Phone Capo Nunes MD Primary Care Provider [facility], Pcp Primary Care Provider Unavailabl e Reason for Visit * Reason Comments E-prescribe Rx Request Encounter Details Date Type Department Care Team Description 09/03/2013 Refill Medicine/Pediatrics [address] [phone] Capo Nunes MD E-prescribe Rx Request Social [...] encounter Miscellaneous Notes * Telephone Encounter - Pamella Polanco M.A. - 09/04/2013 2:40 PM EST Last ov 05/18/13. Last filled 08/04/13. No CSC. Hand fax. * Telephone Encounter - Courtney Freeman - 09/04/2013 2:34 PM EST Patient would like script to be: E-PRESCRIBED/FAXED TO PHARMACY WHEN WAS THE PATIENT'S LAST APPOINTMENT IN ADULT MEDICINE? 05/18/2013 WHEN WAS THE LAST TIME THE PATIENT SAW THEIR PCP? Same as above Does patient have an upcoming appointment? No (THE MEDICATION REQUESTED IS ON THE MED LIST ABOVE) All of the medications requested were on the CURRENT MEDS list Did you check the Pharmacy information above?: YES Patient wants: 30 -day supply Is this a mail order prescription request ? NO Patients current insurance carrier is: Payor: [facility] FFS Plan: [employer] $25 [employer] [id number] Product Type: LinkedwithO [id number] Insurance ID #: NO CLAIM NUMBER documented in this encounter Plan of Treatment Not on file documented as of this encounter Visit Diagnoses Not on filedocumented in this encounter Care Teams Dive Superintendent Relationship Specialty Start Date End Date Capo Nunes MD PCP - General 09/23/09 02/10/22 Rajendra Pickard PCP - General Internal Medicine 02/11/22 documented as of this encounter
--- OUTSIDE RECORDS SUMMARY | 2025-09-11 08:27 | XMS_ITS | Encounter Summary ---
Author Organization [facility] Prior to 08/04/2024 Address [address] [place] [address] Care Team Providers Care Mobile Crane Operator Name Role Phone Capo Nunes MD Primary Care Provider Unavail able [facility], Pcp Primary Care Provider Unavailabl e Encounter Details Date Type Department Care Team Description 10/21/2017 Enterprise Software Developer Report Medical Records [address] [place] [address] Consuelo Serrano NP Social History Tobacco Use [...] on filedocumented in this encounter Care Teams Mobile Crane Operator Relationship Specialty Start Date End Date Capo Nunes MD PCP - General 09/23/09 02/10/22 [facility], Pcp PCP - General Internal Medicine 02/11/22 documented as of this encounter
--- OUTSIDE RECORDS SUMMARY | 2025-09-11 08:27 | XMS_ITS | Encounter Summary ---
Author Organization [facility] Prior to 08/04/2024 Address [facility] [place] [address] Care Team Providers Care Roving Teller Name Role Phone Capo Nunes MD Primary Care Provider [facility], Pcp Primary Care Provider Unavailabl e Encounter Details Date Type Department Care Team Description 07/08/2017 Pt. Non Urgent Medical Question Medicine/Pediatrics - [address] [phone] Capo Nunes MD Social History Tobacco Use Types Packs/Day Years Used Date Smoking Tobacco: Never Smokeless Tobacco: Never Alcohol Use Standard Drinks/Week Comments Yes 0 (1 standard drink = 0.6 oz pure alcohol) 2-3 drinks per week nothing sense April due to the pain Sex Assigned at Date Recorded Female 08/15/2019 3:[address] documented as of this encounter Progress Notes * Vaishali Bautista M.A. - 07/08/2017 1:05 PM EDTFrom: Alicia Pierce To: Capo Nunes MD Sent: 07/08/2017 12:01 PM EDT Subject: Dronabinol update Hello, It has been three weeks now that I have been on the Dronabinol 2.5mg and I have not had any relief from it as yet. How should we move forward at this time? Thank you, Alicia documented in this encounter Plan of Treatment Not on file documented as of this encounter Visit Diagnoses Not on filedocumented in this encounter Care Teams Roving Teller Relationship Specialty Start Date End Date Capo Nunes MD PCP - General 09/23/09 02/10/22 [facility], Pcp PCP - General Internal Medicine 02/11/22 documented as of this encounter
--- OUTSIDE RECORDS SUMMARY | 2025-09-11 08:27 | XMS_ITS | Encounter Summary ---
Author Organization [facility] Prior to 08/04/2024 Address [address] [place] [address] Care Team Providers Care Plant Care Worker Name Role Phone Capo Nunes MD Primary Care Provider [facility], Pcp Primary Care Provider Unavailabl e Encounter Details Date Type Department Care Team Description 12/09/2017 Orders Only Medicine/Pediatrics - [address] [phone] Anastasia Wilkerson, [address] [address] Decreased GFR (Primary Dx) Social History Tobacco Use Types Packs/Day Years [...] on file documented as of this encounter Results * COMPREHENSIVE METABOLIC PANEL (12/15/2017 9:00 AM EDT) [facility] GLUCOSE 84 70 - 100 mg/dL 12/15/2017 4:04 PM EDT [facility] Comment: Reference range applicable to fasting specimens only Based on recommendations from the ADA and AACE, the fasting glucose reference range has been changed to 70-100 mg/dL. This change is effective February 17, 2010 BUN 20 5 - 25 mg/dL 12/15/2017 4:04 PM [facility] CREAT 1.0 0.7 - 1.5 mg/dL 12/15/2017 4:04 PM [facility] BUN/CREAT RATIO 20.0 6.0 - 20.0 12/15/2017 4:04 PM EDT [facility] GFR > 60 >60 12/15/2017 4:04 PM [facility] Comment: If patient is -Afghan, multiply result by 1.21 Chronic Kidney Disease: < 60 ml/min/1.73 square meters Kidney Failure: < 15 ml/min/1.73 square meters Sodium 142 133 - 145 mEq/L 12/15/2017 4:04 PM [facility] Potassium 4.0 3.5 - 5.5 mEq/L 12/15/2017 4:04 PM [facility] Chloride 106 96 - 108 mEq/L 12/15/2017 4:04 PM [facility] CO2 21.0 21.0 - 32.0 mEq/L 12/15/2017 4:04 PM T [facility] CALCIUM 9.2 8.5 - 10.5 mg/dL 12/15/2017 4:04 PM [facility] TOTAL PROTEIN 6.7 6.0 - 8.3 gm/dL 12/15/2017 4:04 PM [facility] Albumin 4.1 3.2 - 5.6 gm/dL 12/15/2017 4:04 PM [facility] GLOBULIN 2.6 1.9 - 4.4 gm/dL 12/15/2017 4:04 [facility] A/G RATIO 1.6 1.1 - 2.3 12/15/2017 4:04 PM [facility] BILI,TOTAL 0.3 0.0 - 1.2 mg/dL 12/15/2017 4:04 PM EDT [facility] AST (SGOT) 16 10 - 42 U/L 12/15/2017 4:04 PM [facility] ALT( SGPT) 16 10 - 60 U/L 12/15/2017 4:04 PM [facility] ALK PHOS 94 42 - 121 U/L 12/15/2017 4:04 PM EDT [facility] 12/15/2017 9:00 AM EDT 12/15/2017 9:01 AM EDT Anastasia Rock PHARMACIST IN CHARGE LAB Performing Organization Address City/State/[facility] de Phone Number [facility] [address] [facility] documented in this encounter Visit Diagnoses Diagnosis Decreased GFR- Primary Nonspecific abnormal results of kidney function study documented in this encounter Care Teams Plant Care Worker Relationship Specialty Start Date End Date Capo Nunes MD PCP - General 09/23/09 02/10/22 [facility], Pcp PCP - General Internal Medicine 02/11/22 documented as of this encounter
--- OUTSIDE RECORDS SUMMARY | 2025-09-11 08:27 | XMS_ITS | Encounter Summary ---
Author Organization [facility] Prior to 08/04/2024 Address [address] [place] [address] Care Team Providers Care Data Processing Auditor Name Role Phone Capo Nunes MD Primary Care Provider Unavail able [facility], Pcp Primary Care Provider Unavailabl e Encounter Details Date Type Department Care Team Description 01/01/2015 Mixer Pigment Report Medical Records [address] [place] [address] Felix Adkins MD Social History Tobacco Use Types Packs/Day [...] on filedocumented in this encounter Care Teams Data Processing Auditor Relationship Specialty Start Date End Date Capo Nunes MD PCP - General 09/23/09 02/10/22 [facility], Pcp PCP - General Internal Medicine 02/11/22 documented as of this encounter
--- OUTSIDE RECORDS SUMMARY | 2025-09-11 08:27 | XMS_ITS | Encounter Summary ---
Author Organization [facility] Prior to 08/04/[address] [place] [address] Care Team Providers Care Tool Room Supervisor Name Role Phone Capo Nunes MD Primary Care Provider Unavail able [facility], Pcp Primary Care Provider Unavailabl e Encounter Details Date Type Department Care Team Description 08/31/2017 Aircraft Assembler Report Medical Records [address] [place] [address] Consuelo Serrano NP Social History Tobacco Use [...] on filedocumented in this encounter Care Teams Tool Room Supervisor Relationship Specialty Start Date End Date Capo Nunes MD PCP - General 09/23/09 02/10/22 [facility], Pcp PCP - General Internal Medicine 02/11/22 documented as of this encounter
--- OUTSIDE RECORDS SUMMARY | 2025-09-11 08:27 | XMS_ITS | Encounter Summary ---
Author Organization [facility] Prior to 08/04/2024 Address [address] [place] [address] Care Team Providers Care Metal Stamping Machine Operator Name Role Phone Capo Nunes MD Primary Care Provider Unavail able [facility], Pcp Primary Care Provider Unavailabl e Encounter Details Date Type Department Care Team Description 04/12/2017 Quality Engineer Medical Device Report Medical Records [address] [place] [address] Wade Sethi Social History Tobacco Use Types Packs/Day Years [...] on filedocumented in this encounter Care Teams Metal Stamping Machine Operator Relationship Specialty Start Date End Date Capo Nunes MD PCP - General 09/23/09 02/10/22 [facility], Pcp PCP - General Internal Medicine 02/11/22 documented as of this encounter
--- OUTSIDE RECORDS SUMMARY | 2025-09-11 08:27 | XMS_ITS | Encounter Summary ---
Author Organization [facility] Prior to 08/04/2024 Address [address] [place] [address] Care Team Providers Care College Hire Name Role Phone Capo Nunes MD Primary Care Provider Unavail able [facility], Pcp Primary Care Provider Unavailabl e Encounter Details Date Type Department Care Team Description 09/04/2013 Drop Clipper Report Medical Records [address] [place] [address] Vicki Maravilla MD Social History Tobacco Use [...] on filedocumented in this encounter Care Teams College Hire Relationship Specialty Start Date End Date Capo Nunes MD PCP - General 09/23/09 02/10/22 [facility], Pcp PCP - General Internal Medicine 02/11/22 documented as of this encounter
--- OUTSIDE RECORDS SUMMARY | 2025-09-11 08:27 | XMS_ITS | Encounter Summary ---
Author Organization [facility] Prior to 08/04/2024 Address [facility] [place] [address] Care Team Providers Care Graphic Manager Name Role Phone Capo Nunes MD Primary Care Provider [facility], Pcp Primary Care Provider Unavailabl e Reason for Visit * Reason Onset Date Comments Advice 07/08/2015 Encounter Details Date Type Department Care Team Description 07/08/2015 Pt. Non Urgent Medical Question Medicine/Pediatrics [address] [phone] Capo Nunes MD Social History Tobacco Use Types Packs/Day Years Used Date Smoking Tobacco: Never Smokeless Tobacco: Never Alcohol Use Standard Drinks/Week Comments Yes 0 (1 standard drink = 0.6 oz pure alcohol) 2-3 drinks per week nothing sense April due to the pain Sex Assigned at Date Recorded Female 08/15/2019 3:[address] documented as of this encounter Progress Notes * aMry Malloy L.P.NIvanna - 07/09/2015 7:34 AM EDTFrom: Alicia Pierce To: Capo Nunes MD Sent: 07/08/2015 6:42 PM EDT Subject: Drug interaction question Good evening, My physician that is treating me for my bladder condition, Dr. Frank Ramachandran had put me on Oxytrol patches, unfortunately I had a bad reaction to the adhesive in the patch. He wants to now try theoral form Oxybutynin but has a concern due to the fact that I am on Topamax and there is a increased risk of seizures when taking the two medications together. The dose he plans to start me on is only 5mg. but he wanted me to check with you first to see if you saw a problem with taking these two medications together before calling the prescription in to the pharmacy. Thank you documented in this encounter Plan of Treatment Not on file documented as of this encounter Visit Diagnoses Not on filedocumented in this encounter Care Teams Graphic Manager Relationship Specialty Start Date End Date Capo Nunes MD PCP - General 09/23/09 02/10/22 [facility] [place], Pcp PCP - General Internal Medicine 02/11/22 documented as of this encounter
--- OUTSIDE RECORDS SUMMARY | 2025-09-11 08:27 | XMS_ITS | Encounter Summary ---
Author Organization [facility] Prior to 08/04/2024 Address [address] [place] [address] Care Team Providers Care Spinning Frame Changer Name Role Phone Capo Nunes MD Primary Care Provider Unavail able [facility], Pcp Primary Care Provider Unavailabl e Encounter Details Date Type Department Care Team Description 04/29/2015 Hospital Medical Records [address] [place] [address] Ramiro Burgos MD Social History Tobacco Use Types Packs/Day [...] on filedocumented in this encounter Care Teams Spinning Frame Changer Relationship Specialty Start Date End Date Capo Nunes MD PCP - General 09/23/09 02/10/22 [facility], Pcp PCP - General Internal Medicine 02/11/22 documented as of this encounter
--- OUTSIDE RECORDS SUMMARY | 2025-09-11 08:27 | XMS_ITS | Encounter Summary ---
Author Organization [facility] Prior to 08/04/2024 Address [address] [place] [address] Care Team Providers Care Courtroom Deputy Name Role Phone Capo Nunes MD Primary Care Provider [facility], Pcp Primary Care Provider Unavailabl e Reason for Visit * Reason Comments E-prescribe Rx Request Encounter Details Date Type Department Care Team Description 02/16/2017 Refill Medicine/Pediatrics [address] [phone] Capo Nunes MD E-prescribe Rx Request Social [...] Telephone Encounter - Jacob Pacheco M.A. - 02/16/2017 11:26 AM EDT Last office visit 4.10.17 Component Value Date NA 140 05/16/2015 K 4.1 05/16/2015 CO2 21.0 05/16/2015 CL 104 05/16/2015 BUN 18 05/16/2015 CREAT 0.9 05/16/2015 GLU 84 05/16/2015 CA 9.2 05/16/2015 GFR > 60 05/16/2015 * Telephone Encounter - Brianna Avina - 02/16/2017 9:07 AM EDT Patient would like script to be: E-PRESCRIBED/FAXED TO PHARMACY WHEN WAS THE PATIENT'S LAST APPOINTMENT IN ADULT MEDICINE? 01.11.2017 WHEN WAS THE LAST TIME THE PATIENT SAW THEIR PCP? 12.14.2016 Does patient have an upcoming appointment? Yes 02.26.2017 (THE MEDICATION REQUESTED IS ON THE MED LIST ABOVE) All of the medications requested were on the CURRENT MEDS list Did you check the Pharmacy information above?: YES Patient wants: 90 -day supply Is this a mail order prescription request ? NO Patients current insurance carrier is: Payor: EVANGELINA / Plan: POS $20 JEAN CLAUDEOOGA [id number] / Product Type: POS [id number] Insurance ID #: NO CLAIM NUMBER documented in this encounter Plan of Treatment Not on file documented as of this encounter Visit Diagnoses Not on filedocumented in this encounter Care Teams Courtroom Deputy Relationship Specialty Start Date End Date Capo Nunes MD PCP - General 09/23/09 02/10/22 [facility], Pcp PCP - General Internal Medicine 02/11/22 documented as of this encounter
--- OUTSIDE RECORDS SUMMARY | 2025-09-11 08:27 | XMS_ITS | Encounter Summary ---
Author Organization [facility] Prior to 08/04/2024 Address [address] [place] [address] Care Team Providers Care Sales And Marketing Representative Name Role Phone Capo Nunes MD Primary Care Provider Unavail able [facility], Pcp Primary Care Provider Unavailabl e Encounter Details Date Type Department Care Team Description 03/15/2018 [facility] Medical Records [address] [place] [address] Abstract, Provider Social History Tobacco Use Types Packs/Day Years [...] on filedocumented in this encounter Care Teams Sales And Marketing Representative Relationship Specialty Start Date End Date Capo Nunes MD PCP - General 09/23/09 02/10/22 [facility], Pcp PCP - General Internal Medicine 02/11/22 documented as of this encounter
--- OUTSIDE RECORDS SUMMARY | 2025-09-11 08:27 | XMS_ITS | Encounter Summary ---
Author Organization [facility] Prior to 08/04/2024 Address [address] [place] [address] Care Team Providers Care Waiter/Waitress Take Out Name Role Phone Capo Nunes MD Primary Care Provider Unavail [facility], Pcp Primary Care Provider Unavailabl e Reason for Referral * Specialist (Routine) - Authorized/Booked Specialty Diagnoses / Procedures Referred By Contact Referred To Contact Allergy & Immunology / Allergy Procedures REFERRAL TO ALLERGY Capo Nunes MD [address] [place] [address] External Allergy Referral ID Status Reason Start Date Expiration Date V isits Requested Visits Authorized SEE REVIEW 12/13/14 Authorized/ Booked 12/12/2014 03/15/2015 1 1 Encounter Details Date Type Department Care Team Description 12/12/2014 Pt. Non Urgent Medical Question Medicine/Pediatrics - [address] [phone] Capo Nunes MD Hypothyroidism (Primary Dx) Social History Tobacco Use Types Packs/Day Years Used Date Smoking Tobacco: Never Smokeless Tobacco: Never Alcohol Use Standard Drinks/Week Comments Yes 0 (1 standard drink = 0.6 oz pur e alcohol) 1 drink, 2-3 times per week Sex Assigned at Date Recorded Female 08/15/2019 3:[address] documented as of this encounter Progress Notes * Radha Vinson R.N. - 12/12/2014 11:25 AM EDTFrom: Alicia Pierce To: Capo Nunes MD Sent: 12/12/2014 11:17 AM EDT Subject: Test results Hi Doctor Des, Thank you for getting my results back to me so fast. I know you said not to be concerned with my triglyceride level, but it did seem awfully high. But if you really don't see any cause for concern, then I'm fine with that. As for the Thyroid replacement therapy I'm very interested in starting something like that. Anything that will make me feel more normal and myself and this point I'm all for trying. Also I did find an Repertoire Manager in [place] at [facility] on [address], Doctor Lucille. Crossing my fingers. Thanks so much for your help and care, Alicia documented in this encounter Plan of Treatment Not on file documented as of this encounter Results * TSH (02/19/2015 9:32 AM EDT) TSH 2.11 0.40 - 4.00 mIU/ml 02/19/2015 12:33 PM EDT [facility] 02/19/2015 9:32 AM EDT 02/19/2015 9:33 AM EDT Capo Nunes MD LAB Performing Organization Address City/State/[facility] Co de Phone Number [facility] [address] [facility] documented in this encounter Visit Diagnoses Diagnosis Hypothyroidism- Primary Unspecified hypothyroidism documented in this encounter Care Teams Waiter/Waitress Take Out Relationship Specialty Start Date End Date Capo Nunes MD PCP - General 09/23/09 02/10/22 [facility], Pcp PCP - General Internal Medicine 02/11/22 documented as of this encounter
--- OUTSIDE RECORDS SUMMARY | 2025-09-11 08:27 | XMS_ITS | Encounter Summary ---
Author Organization [facility] Prior to 08/04/2024 Address [address] [place] [address] Care Team Providers Care Small Engine Specialist Name Role Phone Capo Nunes MD Primary Care Provider Unavail able [facility], Pcp Primary Care Provider Unavailabl e Encounter Details Date Type Department Care Team Description 03/30/2018 [employer] Maker Report Medical Records [address] [place] [address] Consuelo Serrano NP Social History Tobacco Use [...] on filedocumented in this encounter Care Teams Small Engine Specialist Relationship Specialty Start Date End Date Capo Nunes MD PCP - General 09/23/09 02/10/22 [facility], Pcp PCP - General Internal Medicine 02/11/22 documented as of this encounter
--- OUTSIDE RECORDS SUMMARY | 2025-09-11 08:27 | XMS_ITS | Encounter Summary ---
Author Organization [facility] Prior to 08/04/2024 Address [address] [place] [address] Care Team Providers Care Time Signal Wirer Name Role Phone Capo Nunes MD Primary Care Provider Unavail able [facility], Pcp Primary Care Provider Unavailabl e Encounter Details Date Type Department Care Team Description 03/23/2018 Manager Latin Report Medical Records [address] [place] [address] Consuelo Serrano NP Social History Tobacco Use [...] on filedocumented in this encounter Care Teams Time Signal Wirer Relationship Specialty Start Date End Date Capo Nunes MD PCP - General 09/23/09 02/10/22 [facility], Pcp PCP - General Internal Medicine 02/11/22 documented as of this encounter
--- OUTSIDE RECORDS SUMMARY | 2025-09-11 08:27 | XMS_ITS | Encounter Summary ---
Author Organization [facility] Prior to 08/04/2024 Address [address] [place] [address] Care Team Providers Care Rotary Drill Operator Name Role Phone Capo Nunes MD Primary Care Provider Unavail able [facility], Pcp Primary Care Provider Unavailabl e Encounter Details Date Type Department Care Team Description 10/14/2017 [facility] Controlled Substance Contract Medical Records [address] [place] [address] Abstract, Provider Social History Tobacco Use Types [...] on filedocumented in this encounter Care Teams Rotary Drill Operator Relationship Specialty Start Date End Date Capo Nunes MD PCP - General 09/23/09 02/10/22 [facility], Pcp PCP - General Internal Medicine 02/11/22 documented as of this encounter
--- OUTSIDE RECORDS SUMMARY | 2025-09-11 08:27 | XMS_ITS | Encounter Summary ---
Author Organization [facility] Prior to 08/04/2024 Address [address] [place] [address] Care Team Providers Care Account Development Manager Name Role Phone Capo Nunes MD Primary Care Provider [facility], Pcp Primary Care Provider Unavailabl e Reason for Visit * Reason Onset Date Comments other 06/04/2015 Encounter Details Date Type Department Care Team Description 06/04/2015 Pt. Non Urgent Medical Question Medicine/Pediatrics [address] [address] Capo Nunes MD Social History Tobacco Use Types Packs/Day Years Used Date Smoking Tobacco: Never Smokeless Tobacco: Never Alcohol Use Standard Drinks/Week Comments Yes 0 (1 standard drink = 0.6 oz pur e alcohol) 1 drink, 2-3 times per week Sex Assigned at Date Recorded Female 08/15/2019 3:[address] documented as of this encounter Progress Notes * Mary Malloy L.P.N. - 06/04/2015 11:27 AM EDTFrom: Alicia Pierce To: Capo Nunes MD Sent: 06/04/2015 11:12 AM EDT Subject: Follow up for Neurosurgeon appointment Sobeida, I had my appointment yesterday with Dr. Koch at [facility] yesterday. His diagnosis was that there is nothing that he is able to do for me. He said he did not see anything wrong with myMRI. He suggested I try acupuncture. I will continue to see Dr. Monsivais for as long as I am able to take that route for some temporary relief. Thank you, Alicia documented in this encounter Plan of Treatment Not on file documented as of this encounter Visit Diagnoses Not on filedocumented in this encounter Care Teams Account Development Manager Relationship Specialty Start Date End Date Capo Nunes MD PCP - General 09/23/09 02/10/22 [facility], Pcp PCP - General Internal Medicine 02/11/22 documented as of this encounter
--- OUTSIDE RECORDS SUMMARY | 2025-09-11 08:27 | XMS_ITS | Clinical Summary ---
Author Organization [facility] Prior to 03/03/[address] [place] [address] Care Team Providers Care Electron Beam Machine Welder Setter Name Role Phone Capo Nunes MD Primary Care Provider [phone]- [phone] Allergies Active Allergy Reactions Criticality Noted Date [...] 80 08/04/2024 8:07 AM EDT Temperature 36.2 C (97.2 F) 02/02/2024 8:30 AM EDT Respiratory Rate - - Oxygen Saturation 99% [...] Screening (Mammogram) 2022 COVID-19 Vaccine ( season) 2025 09/06/2021 Influenza Vaccine (#1) 2025 , 06/22/2023, 07/24/2022, Additional history exists DTap / Tdap / Td (3 - Td or Tdap) 08/19/2030 08/19/2020, 10/10/2009 Pneumococcal Vaccine Aged Out 12/11/2014 No long er eligible based on patient's age to complete this topic Shingrix-Zoster Vaccine Completed 11/16/2022, 07/24 RSV Ped < 20 months Aged Out No longe r eligible based on patient's age to complete this topic Care Teams Electron Beam Machine Welder Setter Relationship Specialty Start Date End Date Capo Nunes MD [address] [place] [phone] PCP - General Internal Medicine 07/06/23
--- OUTSIDE RECORDS SUMMARY | 2025-09-11 08:28 | XMS_ITS | Encounter Summary ---
Author Organization [facility] Prior to 08/04/2024 Address [address] [place] [address] Care Team Providers Care Electronic Musical Instrument Repairer Name Role Phone Capo Nunes MD Primary Care Provider Unavail able [facility], Pcp Primary Care Provider Unavailabl e Encounter Details Date Type Department Care Team Description 12/14/2019 [facility] Medical Records [address] [place] [address] Abstract, Provider Social History Tobacco Use Types [...] on filedocumented in this encounter Care Teams Electronic Musical Instrument Repairer Relationship Specialty Start Date End Date Capo Nunes MD PCP - General 09/23/09 02/10/22 [facility], Pcp PCP - General Internal Medicine 02/11/22 documented as of this encounter
--- OUTSIDE RECORDS SUMMARY | 2025-09-11 08:28 | XMS_ITS | Encounter Summary ---
Author Organization [facility] Prior to 08/04/2024 Address [address] [place] [address] Care Team Providers Care Concrete Laborer Name Role Phone Capo Nunes MD Primary Care Provider Unavail able [facility], Pcp Primary Care Provider Unavailabl e Encounter Details Date Type Department Care Team Description 03/07/2020 [facility] Medical Records [address] [place] [address] Abstract, Provider Social History Tobacco Use Types [...] on filedocumented in this encounter Care Teams Concrete Laborer Relationship Specialty Start Date End Date Capo Nunes MD PCP - General 09/23/09 02/10/22 [facility], Pcp PCP - General Internal Medicine 02/11/22 documented as of this encounter
--- OUTSIDE RECORDS SUMMARY | 2025-09-11 08:28 | XMS_ITS | Encounter Summary ---
Author Organization [facility] Prior to 08/04/2024 Address [address] [place] [address] Care Team Providers Care Pediatric Physical Therapy Assistant Name Role Phone Capo Nunes MD Primary Care Provider Unavail able [facility], Pcp Primary Care Provider Unavailabl e Encounter Details Date Type Department Care Team Description 11/03/2016 Mud Mixer Helper Report Medical Records [address] [place] [address] Wade Sethi Social History Tobacco Use Types [...] on filedocumented in this encounter Care Teams Pediatric Physical Therapy Assistant Relationship Specialty Start Date End Date Capo Nunes MD PCP - General 09/23/09 02/10/22 [facility], Pcp PCP - General Internal Medicine 02/11/22 documented as of this encounter
--- OUTSIDE RECORDS SUMMARY | 2025-09-11 08:28 | XMS_ITS | Encounter Summary ---
Author Organization [facility] Prior to 08/04/2024 Address [address] [place] [address] Care Team Providers Care Vacuum Caster Name Role Phone Capo Nunes MD Primary Care Provider Unavail able [facility], Pcp Primary Care Provider Unavailabl e Encounter Details Date Type Department Care Team Description 08/15/2019 [facility] Medical Records [address] [place] [address] Abstract, Provider Social History Tobacco Use Types [...] on filedocumented in this encounter Care Teams Vacuum Caster Relationship Specialty Start Date End Date Capo Nunes MD PCP - General 09/23/09 02/10/22 [facility], Pcp PCP - General Internal Medicine 02/11/22 documented as of this encounter
--- OUTSIDE RECORDS SUMMARY | 2025-09-11 08:28 | XMS_ITS | Encounter Summary ---
Author Organization [facility] Prior to 08/04/2024 Address [address] [place] [address] Care Team Providers Care Sas Administrator Name Role Phone Capo Nunes MD Primary Care Provider [facility], Pcp Primary Care Provider Unavailabl e Reason for Visit * Reason Comments E-prescribe Rx Request Encounter Details Date Type Department Care Team Description 05/08/2014 Refill Medicine/Pediatrics [address] [address] Capo Nunes MD E-prescribe Rx Request Social [...] encounter Miscellaneous Notes * Telephone Encounter - Genevieve Rhodes M.A. - 05/09/2014 2:36 PM EDT Lora 04/02/14 Component Value Date NA 136 09/01/2012 K 4.8 09/01/2012 CO2 24.9 09/01/2012 CL 103 09/01/2012 BUN 11 09/01/2012 CREAT 0.7 09/01/2012 GLU 93 09/01/2012 CA 9.5 09/01/2012 GFR >60 09/01/2012 * Telephone Encounter - Ike Zelaya - 05/09/2014 2:26 PM EDT Patient would like script to be: E-PRESCRIBED/FAXED TO PHARMACY WHEN WAS THE PATIENT'S LAST APPOINTMENT IN ADULT MEDICINE? 04/02/14 WHEN WAS THE LAST TIME THE PATIENT SAW THEIR PCP? Same as above Does patient have an upcoming appointment? Yes 05/15/14 (THE MEDICATION REQUESTED IS ON THE MED LIST ABOVE) All of the medications requested were on the CURRENT MEDS list Did you check the Pharmacy information above?: YES Patient wants: 30 -day supply Is this a mail order prescription request ? NO Patients current insurance carrier is: Payor: FREEDOM/PPO POS / Plan: [employer] [facility] ELECT $20 / Product Type: PPO [id number] Insurance ID #: NO CLAIM NUMBER documented in this encounter Plan of Treatment Not on file documented as of this encounter Visit Diagnoses Not on filedocumented in this encounter Care Teams Sas Administrator Relationship Specialty Start Date End Date Capo Nunes MD PCP - General 09/23/09 02/10/22 [facility], Pcp PCP - General Internal Medicine 02/11/22 documented as of this encounter
--- OUTSIDE RECORDS SUMMARY | 2025-09-11 08:28 | XMS_ITS | Encounter Summary ---
Author Organization [facility] Prior to 08/04/2024 Address [address] [place] [address] Care Team Providers Care Edge Trimmer Mechanic Name Role Phone Capo Nunes MD Primary Care Provider [facility], Pcp Primary Care Provider Unavailabl e Reason for Visit * Reason Comments E-prescribe Rx Request Encounter Details Date Type Department Care Team Description 12/07/2016 Refill Medicine/Pediatrics [address] [phone] Capo Nunes MD E-prescribe Rx Request Social [...] Telephone Encounter - Jacob Pacheco M.A. - 12/07/2016 2:55 PM EST Last office visit 9..16 With pcp Component Value Date NA 140 05/16/2015 K 4.1 05/16/2015 CO2 21.0 05/16/2015 CL 104 05/16/2015 BUN 18 05/16/2015 CREAT 0.9 05/16/2015 GLU 84 05/16/2015 CA 9.2 05/16/2015 GFR > 60 05/16/2015 * Telephone Encounter - Courtney Freeman - 12/07/2016 9:06 AM EST Patient would like script to be: E-PRESCRIBED/FAXED TO PHARMACY WHEN WAS THE PATIENT'S LAST APPOINTMENT IN ADULT MEDICINE? 11/20/2016 WHEN WAS THE LAST TIME THE PATIENT SAW THEIR PCP? 06/30/2016 Does patient have an upcoming appointment? No (THE MEDICATION REQUESTED IS ON THE MED LIST ABOVE) All of the medications requested were on the CURRENT MEDS list Did you check the Pharmacy information above?: YES Patient wants: 90 -day supply Is this a mail order prescription request ? YES Patients current insurance carrier is: Payor: EVANGELINA / Plan: POS $20 LAKISHA [id number] / Product Type: POS [id number] Insurance ID #: NO CLAIM NUMBER documented in this encounter Plan of Treatment Not on file documented as of this encounter Visit Diagnoses Not on filedocumented in this encounter Care Teams Edge Trimmer Mechanic Relationship Specialty Start Date End Date Capo Nunes MD PCP - General 09/23/09 02/10/22 [facility], Pcp PCP - General Internal Medicine 02/11/22 documented as of this encounter
--- OUTSIDE RECORDS SUMMARY | 2025-09-11 08:28 | XMS_ITS | Encounter Summary ---
Author Organization [facility] Prior to 08/04/2024 Address [facility] [place] [address] Care Team Providers Care Carpenter Prototype Name Role Phone Capo Nunes MD Primary Care Provider [facility], Pcp Primary Care Provider Unavailabl e Encounter Details Date Type Department Care Team Description 03/21/2014 Pt. Non Urgent Medical Question Medicine/Pediatrics [address] [phone] Capo Nunes MD Social History Tobacco Use Types Packs/Day Years Used Date Smoking Tobacco: Never Smokeless Tobacco: Never Alcohol Use Standard Drinks/Week Comments Yes 0 (1 standard drink = 0.6 oz pur e alcohol) 1 drink, 2-3 times per week Sex Assigned at Date Recorded Female 08/15/2019 3:[address] documented as of this encounter Progress Notes * Beth Benitez L.P.N. - 03/21/2014 2:27 PM EDTFrom: Alicia Pierce To: Capo Nunes MD Sent: 03/21/2014 2:26 PM EDT Subject: MRI results Sobeida, I wanted to inform Dr. Nunes that I requested to have my MRI film and report of the cervical spinesent to him. Also I will no longer be seeing Dr. Khoury, there was an issue with him and my district supervisor is making me an appt with Dr. Iam Martinez of [facility]. Thank you, Alicia documented in this encounter Plan of Treatment Not on file documented as of this encounter Visit Diagnoses Not on filedocumented in this encounter Care Teams Carpenter Prototype Relationship Specialty Start Date End Date Capo Nunes MD PCP - General 09/23/09 02/10/22 [facility], Pcp PCP - General Internal Medicine 02/11/22 documented as of this encounter
--- OUTSIDE RECORDS SUMMARY | 2025-09-11 08:28 | XMS_ITS | Encounter Summary ---
Author Organization [facility] Prior to 08/04/2024 Address [address] [place] [address] Care Team Providers Care Change Over Name Role Phone Capo Nunes MD Primary Care Provider Unavail able [facility], Pcp Primary Care Provider Unavailabl e Encounter Details Date Type Department Care Team Description 12/24/2016 Client Relationship Consultant Report Medical Records [address] [place] [id number] Chanel Murphy DO Social History Tobacco Use Types Packs/Day Years [...] on filedocumented in this encounter Care Teams Change Over Relationship Specialty Start Date End Date Capo Nunes MD PCP - General 09/23/09 02/10/22 [facility], Pcp PCP - General Internal Medicine 02/11/22 documented as of this encounter
--- OUTSIDE RECORDS SUMMARY | 2025-09-11 08:28 | XMS_ITS | Encounter Summary ---
Author Organization [facility] Prior to 08/04/2024 Address [address] [place] [address] Care Team Providers Care Tipple Engineer Name Role Phone Capo Nunes MD Primary Care Provider Unavail able [facility], Pcp Primary Care Provider Unavailabl e Encounter Details Date Type Department Care Team Description 04/26/2020 [facility] Medical Records [address] [place] [address] Abstract, Provider Social History Tobacco Use Types [...] on filedocumented in this encounter Care Teams Tipple Engineer Relationship Specialty Start Date End Date Capo Nunes MD PCP - General 09/23/09 02/10/22 [facility], Pcp PCP - General Internal Medicine 02/11/22 documented as of this encounter
--- OUTSIDE RECORDS SUMMARY | 2025-09-11 08:28 | XMS_ITS | Encounter Summary ---
Author Organization [facility] Prior to 08/04/2024 Address [address] [place] [address] Care Team Providers Care Crisis Nurse Name Role Phone Capo Nunes MD Primary Care Provider Unavail able [facility], Pcp Primary Care Provider Unavailabl e Encounter Details Date Type Department Care Team Description 07/06/2019 Sports Analyst Report Medical Records [address] [place] [address] Attila Murdock MD Social History Tobacco Use Types Packs/Day [...] on filedocumented in this encounter Care Teams Crisis Nurse Relationship Specialty Start Date End Date Capo Nunes MD PCP - General 09/23/09 02/10/22 [facility], Pcp PCP - General Internal Medicine 02/11/22 documented as of this encounter
--- OUTSIDE RECORDS SUMMARY | 2025-09-11 08:28 | XMS_ITS | Encounter Summary ---
Author Organization [facility] Prior to 08/04/2024 Address [address] [place] [address] Care Team Providers Care Brand Protection Manager Name Role Phone Capo Nunes MD Primary Care Provider Unavail able [facility], Pcp Primary Care Provider Unavailabl e Encounter Details Date Type Department Care Team Description 11/07/2012 Telephone Adult Medicine [address] [address] Capo Nunes MD Social History Tobacco Use [...] on filedocumented in this encounter Care Teams Brand Protection Manager Relationship Specialty Start Date End Date Capo Nunes MD PCP - General 09/23/09 02/10/22 [facility], Pcp PCP - General Internal Medicine 02/11/22 documented as of this encounter
--- OUTSIDE RECORDS SUMMARY | 2025-09-11 08:28 | XMS_ITS | Encounter Summary ---
Author Organization [facility] Prior to 08/04/2024 Address [address] [place] [address] Care Team Providers Care Car Cooper Name Role Phone Capo Nunes MD Primary Care Provider Unavail able [facility], Pcp Primary Care Provider Unavailabl e Encounter Details Date Type Department Care Team Description 10/27/2019 [facility] Medical Records [address] [place] [address] Abstract, Provider Social History Tobacco Use Types [...] on filedocumented in this encounter Care Teams Car Cooper Relationship Specialty Start Date End Date Capo Nunes MD PCP - General 09/23/09 02/10/22 [facility], Pcp PCP - General Internal Medicine 02/11/22 documented as of this encounter
--- OUTSIDE RECORDS SUMMARY | 2025-09-11 08:28 | XMS_ITS | Encounter Summary ---
Author Organization [facility] Prior to 08/04/2024 Address [address] [place] [address] Care Team Providers Care Freight Elevator Operator Name Role Phone Capo Nunes MD Primary Care Provider Unavail able [facility], Pcp Primary Care Provider Unavailabl e Encounter Details Date Type Department Care Team Description 02/04/2017 Human Services Professional Report Medical Records [address] [place] [address] Consuelo Serrano NP Social History Tobacco Use [...] on filedocumented in this encounter Care Teams Freight Elevator Operator Relationship Specialty Start Date End Date Capo Nunes MD PCP - General 09/23/09 02/10/22 [facility], Pcp PCP - General Internal Medicine 02/11/22 documented as of this encounter
--- OUTSIDE RECORDS SUMMARY | 2025-09-11 08:28 | XMS_ITS | Encounter Summary ---
Author Organization [facility] Prior to 08/04/2024 Address [address] [place] [address] Care Team Providers Care Manager Long Term Care Name Role Phone Capo Nunes MD Primary Care Provider [facility], Pcp Primary Care Provider Unavailabl e Reason for Visit * Reason Onset Date Comments Advice 05/27/2014 Encounter Details Date Type Department Care Team Description 05/27/2014 Pt. Non Urgent Medic al Question Adult Medicine [address] [address] Capo Nunes MD Social History Tobacco Use Types Packs/Day Years Used Date Smoking Tobacco: Never Smokeless Tobacco: Never Alcohol Use Standard Drinks/Week Comments Yes 0 (1 standard drink = 0.6 oz pur e alcohol) 1 drink, 2-3 times per week Sex Assigned at Date Recorded Female 08/15/2019 3:[address] documented as of this encounter Progress Notes * Mary Malloy L.P.N. - 05/28/2014 7:45 AM EDTFrom: Alicia Pierce To: Capo Nunes MD Sent: 05/27/2014 11:36 PM EDT Subject: Throat Hello, I really want to know if there is anyway at all that we can do something more to get what is going on in my throat taken care of. I really can't live with this, it happens constantly now and the pastfew days it has been so bad it feels like someone has their hand around my throat and is squeezing,terrible taste in my mouth almost metallic, and I have been dry heaving and gagging a lot. I even vo mited a few times due to it the past few days. I know I have a lot of other things going on too, but I think if we could just find a way to relieve this a lot of things would be much better, such as sleep. Thank you documented in this encounter Plan of Treatment Not on file documented as of this encounter Visit Diagnoses Not on filedocumented in this encounter Care Teams Manager Long Term Care Relationship Specialty Start Date End Date Capo Nunes MD PCP - General 09/23/09 02/10/22 [facility], Pcp PCP - General Internal Medicine 02/11/22 documented as of this encounter
--- OUTSIDE RECORDS SUMMARY | 2025-09-11 08:28 | XMS_ITS | Encounter Summary ---
Author Organization [facility] Prior to 08/04/2024 Address [address] [place] [address] Care Team Providers Care Security Guard Name Role Phone Capo Nunes MD Primary Care Provider Unavail able [facility], Pcp Primary Care Provider Unavailabl e Encounter Details Date Type Department Care Team Description 10/09/2016 Release of Information Medical Records [address] [place] [address] Abstract, Provider Social History Tobacco Use Types [...] on filedocumented in this encounter Care Teams Security Guard Relationship Specialty Start Date End Date Capo Nunes MD PCP - General 09/23/09 02/10/22 [facility], Pcp PCP - General Internal Medicine 02/11/22 documented as of this encounter
--- OUTSIDE RECORDS SUMMARY | 2025-09-11 08:28 | XMS_ITS | Encounter Summary ---
Author Organization [facility] Prior to 08/04/[address] [place] [address] Care Team Providers Care Catalyst Operator Gasoline Name Role Phone [facility], Pcp Primary Care Provider Unavailabl e Reason for Visit * Reason Comments E-prescribe Rx Request Encounter Details Date Type Department Care Team Description 02/13/2022 Refill Adult Medicine - [address] [address] Capo Nunes MD E-prescribe Rx Request Social History Tobacco Use Types Packs/Day Years Used Date Smoking Tobacco: Never Smokeless Tobacco: Never Alcohol Use Standard Drinks/Week Comments Yes 0 (1 standard drink = 0.6 oz pure alcohol) 2-3 drinks per week nothing sense April due to the pain Sex Assigned at Date Recorded Female 08/15/2019 3:[address] COVID-19 Exposure Response Date Recorded In the last 10 days, have yo u been in contact with someone who was confirmed or suspected to have Coronavirus/COVID-19? No / Unsure 02/03/2022 11:02 AM EDT documented as of this encounter Plan of Treatment Not on file documented as of this encounter Visit Diagnoses Not on filedocumented in this encounter Care Teams Catalyst Operator Gasoline Relationship Specialty Start Date End Date [facility], Pcp PCP - General Internal Medicine 02/11/22 documented as of this encounter
--- OUTSIDE RECORDS SUMMARY | 2025-09-11 08:28 | XMS_ITS | Encounter Summary ---
Author Organization [facility] Prior to 08/04/2024 Address [address] [place] [address] Care Team Providers Care Nurse Private Duty Name Role Phone Capo Nunes MD Primary Care Provider [facility], Pcp Primary Care Provider Unavailabl e Reason for Visit * Reason Onset Date Comments Faxed Refill 10/27/2019 levothyroxine Encounter Details Date Type Department Care Team Description 10/27/2019 Refill Medicine/Pediatrics [address] [phone] Caop Nunes MD Faxed Refill (levothyroxine) Social History Tobacco Use Types Packs/Day Years Used Date Smoking Tobacco: Never Smokeless Tobacco: Never Alcohol Use Standard Drinks/Week Comments Yes 0 (1 standard drink = 0.6 oz pure alcohol) 2-3 drinks per week nothing sense April due to the pain Sex Assigned at Date Recorded Female 08/15/2019 3:[address] documented as of this encounter Miscellaneous Notes * Telephone Encounter - Vaishali Bautista M.A. - 10/27/2019 10:32 AM EST Date of last office visit was 08/16/19. Lab Results Component Value Date TSH 4.86 08/28/2019 * Telephone Encounter - Meghan Finch - 10/27/2019 9:06 AM EST Patient would like script to be: E-PRESCRIBED/FAXED TO PHARMACY WHEN WAS THE PATIENT'S LAST APPOINTMENT IN ADULT MEDICINE? 08.16.19 WHEN WAS THE LAST TIME THE PATIENT SAW THEIR PCP? Same as above Does patient have an upcoming appointment? no (THE MEDICATION REQUESTED IS ON THE MED LIST ABOVE) All of the medications requested were on the CURRENT MEDS list Did you check the Pharmacy information above?: YES Patient wants: 90 -day supply Is this a mail order prescription request ? YES If the refill is from a FAXED refill request what is the RX # listed on the fax? N/A Patients current insurance carrier is: Payor: [employer]EL[employer] / Plan: PPO $25 LAKISHA [id number] / Product Type: PPO [id number] Insurance ID #: NO CLAIM NUMBER documented in this encounter Plan of Treatment Not on file documented as of this encounter Visit Diagnoses Not on filedocumented in this encounter Care Teams Nurse Private Duty Relationship Specialty Start Date End Date Capo Nunes MD PCP - General 09/23/09 02/10/22 [facility], Pcp PCP - General Internal Medicine 02/11/22 documented as of this encounter
--- OUTSIDE RECORDS SUMMARY | 2025-09-11 08:28 | XMS_ITS | Encounter Summary ---
Author Organization [facility] Prior to 08/04/2024 Address [address] [place] [address] Care Team Providers Care Unit Manager Convenience Stores Name Role Phone Capo Nunes MD Primary Care Provider Unavail able [facility], Pcp Primary Care Provider Unavailabl e Encounter Details Date Type Department Care Team Description 12/17/2016 Patcher Wood Welder Report Medical Records [address] [place] [address] Abstract, Provider Social History Tobacco Use Types [...] on filedocumented in this encounter Care Teams Unit Manager Convenience Stores Relationship Specialty Start Date End Date Capo Nunes MD PCP - General 09/23/09 02/10/22 [facility], Pcp PCP - General Internal Medicine 02/11/22 documented as of this encounter
--- OUTSIDE RECORDS SUMMARY | 2025-09-11 08:29 | XMS_ITS | Encounter Summary ---
Author Organization [facility] Prior to 08/04/2024 Address [address] [place] [address] Care Team Providers Care Form Tamping Machine Operator Name Role Phone Capo Nunes MD Primary Care Provider [facility], Pcp Primary Care Provider Unavailabl e Reason for Visit * Reason Onset Date Comments Call From Md Office 11/27/2015 [facility] Encounter Details Date Type Department Care Team Description 11/27/2015 Telephone Medicine/Pediatrics - [address] [phone] Capo Nunes MD Call From Md Office ([facility]) Social History Tobacco Use Types Packs/Day Years [...] Telephone Encounter - Vaishali Bautista M.A. - 11/27/2015 3:21 PM EST (FY) to PCP. * Telephone Encounter - Giuliana Garcia - 11/27/2015 3:14 PM EST She only needs to speak with provider if there is any additional information that she may need for referral to pain management. * Telephone Encounter - Vaishali Bautista M.A. - 11/27/2015 3:07 PM EST Is this an FYI or does Dr. Turcios need to speak with someone. * Telephone Encounter - Giuliana Garcia - 11/27/2015 1:21 PM EST calling: Doing a review for a referral to pain management, any additional information please call her at number listed above. She asked a message to be put in. documented in this encounter Plan of Treatment Not on file documented as of this encounter Visit Diagnoses Not on filedocumented in this encounter Care Teams Form Tamping Machine Operator Relationship Specialty Start Date End Date Capo Nunes MD PCP - General 09/23/09 02/10/22 [facility], Pcp PCP - General Internal Medicine 02/11/22 documented as of this encounter
--- OUTSIDE RECORDS SUMMARY | 2025-09-11 08:29 | XMS_ITS | Encounter Summary ---
Author Organization [facility] Prior to 08/04/2024 Address [address] [place] [address] Care Team Providers Care Manhole Builder Name Role Phone Capo Nunes MD Primary Care Provider Unavail able [facility], Pcp Primary Care Provider Unavailabl e Encounter Details Date Type Department Care Team Description 12/02/2015 Release of Information Medical Records [address] [place] [address] Abstract, Provider Social History Tobacco Use Types [...] on filedocumented in this encounter Care Teams Manhole Builder Relationship Specialty Start Date End Date Capo Nunes MD PCP - General 09/23/09 02/10/22 [facility], Pcp PCP - General Internal Medicine 02/11/22 documented as of this encounter
--- OUTSIDE RECORDS SUMMARY | 2025-09-11 08:29 | XMS_ITS | Encounter Summary ---
Author Organization [facility] Prior to 08/04/2024 Address [address] [place] [address] Care Team Providers Care Monologist Name Role Phone Capo Nunes MD Primary Care Provider Unavail able [facility], Pcp Primary Care Provider Unavailabl e Encounter Details Date Type Department Care Team Description 03/13/2016 Apprentice Painter Neckties Report Medical Records [address] [place] [address] Wade Sethi Social History Tobacco Use Types [...] on filedocumented in this encounter Care Teams Monologist Relationship Specialty Start Date End Date Capo Nunes MD PCP - General 09/23/09 02/10/22 [facility], Pcp PCP - General Internal Medicine 02/11/22 documented as of this encounter
--- OUTSIDE RECORDS SUMMARY | 2025-09-11 08:29 | XMS_ITS | Encounter Summary ---
Author Organization [facility] Prior to 08/04/2024 Address [address] [place] [address] Care Team Providers Care Pattern Illustrator Name Role Phone Capo Nunes MD Primary Care Provider Unavail able [facility], Pcp Primary Care Provider Unavailabl e Encounter Details Date Type Department Care Team Description 02/26/2021 Computer Training Specialist Report Medical Records [address] [place] [address] Salvador Penn MD Social History Tobacco Use Types Packs/Day Years Used Date Smoking Tobacco: Never Smokeless Tobacco: Never Alcohol Use Standard Drinks/Week Comments Yes 0 (1 standard drink = 0.6 oz pure alcohol) 2-3 drinks per week nothing sense April due to the pain Sex Assigned at Date Recorded Female 08/15/2019 3:[address] COVID-19 Exposure Response Date Recorded In the last month, have you been in contact with someone who was confirmed or suspected to have Coronavirus / COVID-19? No / Unsure 01/31/2021 10:31 AM EDT documented as of this encounter Plan of Treatment Not on file documented as of this encounter Visit Diagnoses Not on filedocumented in this encounter Care Teams Pattern Illustrator Relationship Specialty Start Date End Date Capo Nunes MD PCP - General 09/23/09 02/10/22 [facility], Pcp PCP - General Internal Medicine 02/11/22 documented as of this encounter
--- OUTSIDE RECORDS SUMMARY | 2025-09-11 08:29 | XMS_ITS | Encounter Summary ---
Author Organization [facility] Prior to 08/04/2024 Address [address] [place] [address] Care Team Providers Care Pigment Presser Name Role Phone Capo Nunes MD Primary Care Provider Unavail able [facility], Pcp Primary Care Provider Unavailabl e Encounter Details Date Type Department Care Team Description 03/29/2019 [facility] Medical Records [address] [place] [address] Abstract, Provider Social History Tobacco Use Types [...] on filedocumented in this encounter Care Teams Pigment Presser Relationship Specialty Start Date End Date Capo Nunes MD PCP - General 09/23/09 02/10/22 [facility], Pcp PCP - General Internal Medicine 02/11/22 documented as of this encounter
--- OUTSIDE RECORDS SUMMARY | 2025-09-11 08:29 | XMS_ITS | Encounter Summary ---
Author Organization [facility] Prior to 08/04/2024 Address [address] [place] [address] Care Team Providers Care Preservationist Name Role Phone Capo Nunes MD Primary Care Provider Unavail able [facility], Pcp Primary Care Provider Unavailabl e Encounter Details Date Type Department Care Team Description 05/05/2016 Release of Information Medical Records [address] [place] [address] Abstract, Provider Social History Tobacco Use Types [...] on filedocumented in this encounter Care Teams Preservationist Relationship Specialty Start Date End Date Capo Nunes MD PCP - General 09/23/09 02/10/22 [facility], Pcp PCP - General Internal Medicine 02/11/22 documented as of this encounter
--- OUTSIDE RECORDS SUMMARY | 2025-09-11 08:29 | XMS_ITS | Clinical Summary ---
Author Organization [address] [facility] Address [address] [place] [address] Phone Care Team Providers Care College Or University Business Manager Name Role Phone Capo Nunes MD Primary Care Provider [phone] Allergies Active Allergy Reactions Criticality Noted Date [...] Do not crush, chew, or split. Active Linzess 145 mcg capsule Take 1 capsule (145 mcg total) by mouth 1 (one) time each day. 05/17/2025 Active pantoprazole (PROTONIX) 40 mg EC tablet Take 1 tablet (40 mg total) by mouth 2 (two) times a day. 01/02/2025 Active riboflavin (VITAMIN B2) 400 mg tablet Take 1 tablet (400 mg total) by mouth 1 (one) time each day. 01/10/2025 Active venlafaxine XR (EFFEXOR-XR) 75 mg 24 hr capsule 03/19/2025 Active eszopiclone (LUNESTA) 3 mg tablet Take 1 tablet (3 mg total) by mouth at bedtime as needed. for insomnia Max Daily Amount: 3 mg 05/11/2025 Active gabapentin (NEURONTIN) 400 mg capsule Take 1 capsule (400 mg total) by mouth 3 (three) times a day. 90 each 5 07/09/2025 01/06/20 26 Active rizatriptan (MAXALT) 10 mg tablet Take 1 tablet (10 mg total) by mouth 1 (one) time if needed for migraine (may repeat x1). May repeat in 2 hours if unresolved. Do not exceed 30 mg in 24 hours. 9 tablet 5 07/09/2025 07/09/20 26 Active Active Problems Problem Noted Date Diagnosed Date Multiple sclerosis 03/05/2021 Overview (09/08/2024): Possible History of COVID-19 11/12/2020 Overview (09/08/2024): 2/21 Chronic neck pain 02/26/2019 Overview (09/08/2024): PVSS Eczema 10/13/2015 Overview (09/08/2024): Dr Darya Ferrer 05/14/2015 Overview (09/08/2024): Possible 7/15 Anxiety 05/18/2014 Hypothyroidism 05/15/2014 Back pain 05/20/2013 Overview (09/08/2024): Dr Maravilla Chronic headache disorder 11/10/2012 Overview (09/08/2024): Dr Penn IBS (irritable bowel syndrome) 11/10/2012 Overview (09/08/2024): Alt C/D. TMJ (temporomandibular joint syndrome) 3 Depression, major, recurrent, moderate 0 Overview (09/08/2024): More anxiety than depression; also, bad arachnophobia. Prozac may have helped before Endometriosis 10/10/2009 Overview (09/08/2024): S/p laparoscopy 11/13; also leiomyoma (vaginal nodule) Interstitial cystitis 10/10/2009 Overview (09/08/2024): Dr Ramachandran Mild persistent asthma 10/10/2009 Vasovagal episode 10/10/2009 Overview (09/08/2024): After blood draws Immunizations Immunization Administration Dates Next Due H1N1 Inj Preservative [...] on file Sexual Orientation Not on file Last Filed Vital Signs Vital Sign Reading Time Taken Comments Blood Pressure 128/81 06/07/2025 8:10 AM EDT Pulse 81 06/07/2025 8:10 AM EDT Temperature 36.1 C (97 F) 06/07/2025 8:10 AM EDT Respiratory Rate - - Oxygen Saturation 98% 06/07/2025 8:10 AM EDT Inhaled Oxygen Concentration - - Weight 49 kg (108 lb) 12/04/2024 8:28 AM EST Height 154.9 cm (5' 1 ) 12/04/2024 8:28 AM EST Body Mass Index 20.41 12/04/2024 8:28 AM EST Plan of Treatment Upcoming Encounters Date Type Department Care Team (Late st Contact Info) Description 12/12/2025 8:30 AM EDT Office Visit [facility] [address] [facility] [address] [place] [phone] Helen Tavera MD [address] [place] [address] Health Maintenance Due Date Last Done Comments Breast Cancer Screening 1972 Colorectal Cancer Screening: Colonoscopy 1972 Hepatitis B Vaccines (1 of 3 - 19+ 3-dose series) 1991 Pneumococcal Vaccine: 50+ Years (2 of 2 - PCV) 12/12/2015 12/11/2014 RSV Immunization Adult Patients (1 - Risk 50-74 years 1-dose series) 2022 HIV Screening 09/06/2022 Osteoporosis Screening (Bone Density Screening) 09/06/2022 Social Influencers of Health Screening 09/06/2022 Cervical Cancer Screening: Pap Smear 11/04/2022 11/04/2019 Depression Screening 10/04/2024 COVID-19 Vaccine ( - season) 2025 09/06/2021, 02/13/2021, 01/16/2021 DTaP,Tdap,and Td Vaccines (4 - Td or Tdap) 07/07/2034 07/07/2024, 08/19/2020, 10/10/2009 Hepatitis C Screening Completed 06/08/2010 Zoster Vaccines Completed 11/16/2022, 07/24/2022 Influenza Vaccine Completed 05/24/2025, , 06/22/2023, Additional history exists HIB Vaccines Aged Out [...] Procedure Name Priority Date/Time Associated Diagnosis Comments PAP SMEAR Routine 11/04/2019 HEPATITIS C SCREENING Routine 06/08/2010 from Last 3 Months or Most Recently Relevant to Health Maintenance Results * Pap Smear (11/04/2019) Pap smear no interpretation , abstracted Historical Provider HEALTH MAINTENANCE Final Result * Hepatitis C Screening (06/08/2010) Hepatitis C Screening abstracted Historical Provider HEALTH MAINTENANCE Final Result from Last 3 Months or Most Recently Relevant to Health [id number] Care Teams College Or University Business Manager Relationship Specialty Start Date End Date Capo Nunes MD [id number] [place] [address] PCP - General 07/06/23
--- OUTSIDE RECORDS SUMMARY | 2025-09-11 08:29 | XMS_ITS | Encounter Summary ---
Author Organization [facility] Prior to 08/04/2024 Address [address] [place] [address] Care Team Providers Care Barnworker Groom Name Role Phone Capo Nunes MD Primary Care Provider [facility], Pcp Primary Care Provider Unavailabl e Encounter Details Date Type Department Care Team Description 03/06/2014 Pt. Non Urgent Medical Question Medicine/Pediatrics [address] [phone] Capo Nunes MD Social History Tobacco Use Types Packs/Day Years Used Date Smoking Tobacco: Never Smokeless Tobacco: Never Alcohol Use Standard Drinks/Week Comments Yes 0 (1 standard drink = 0.6 oz pur e alcohol) 1 drink, 2-3 times per week Sex Assigned at Date Recorded Female 08/15/2019 3:[address] documented as of this encounter Progress Notes * Yessi Herzog L.P.N. - 03/07/2014 8:32 AM EDTFrom: IRIS PIERCE To: Capo Nunes MD Sent: WedMar 06, 2014 5:15 PM Subject: Regarding wellbutrin I noticed when I picked up my medication yesterday the label said do not drink alcohol with this medication . Is this an absolute do not do, or okay in moderation, meaning a glass of wine or two on the weekend or a beer? I do not drink heavy alcohol, only beer or wine. Thank you, Iris Pierce documented in this encounter Plan of Treatment Not on file documented as of this encounter Visit Diagnoses Not on filedocumented in this encounter Care Teams Barnworker Groom Relationship Specialty Start Date End Date Capo Nunes MD PCP - General 09/23/09 02/10/22 [facility], Pcp PCP - General Internal Medicine 02/11/22 documented as of this encounter
--- OUTSIDE RECORDS SUMMARY | 2025-09-11 08:29 | XMS_ITS | Encounter Summary ---
Author Organization [facility] Prior to 08/04/2024 Address [address] [place] [address] Care Team Providers Care Slinger Sequins Name Role Phone Capo Nunes MD Primary Care Provider [facility], Pcp Primary Care Provider Unavailabl e Reason for Visit * Reason Onset Date Comments Letter 04/22/2016 Dr.Paul Sethi Encounter Details Date Type Department Care Team Description 04/22/2016 Telephone Medicine/Pediatrics - [address] [phone] Capo Nunes MD Letter (Dr.Paul Sethi) Social History Tobacco Use Types Packs/Day Years [...] Telephone Encounter - Vaishali Bautista M.A. - 04/24/2016 9:46 AM EDT Carri has not responded to our calls. If she calls back please remessage * Telephone Encounter - Vaishali Bautista M.A. - 04/23/2016 8:38 AM EDT Left message for Carri to call the office. Please transfer call to [phone] if there is no answer please remessage to message pool * Telephone Encounter - Vaishali Bautista M.A. - 04/22/2016 11:57 AM EDT Left message for Carri to call the office. Please transfer call to x [phone] if there is no answer please remessage to message pool * Telephone Encounter - Carina Hollins - 04/22/2016 9:51 AM EDT Carri returning call. Please call back. Thanks * Telephone Encounter - Vaishali Bautista M.A. - 04/22/2016 9:46 AM EDT Left message for Carri at [facility] pain management x [phone] or remessage to the message pool * Telephone Encounter - Alicia Ramirez - 04/22/2016 9:29 AM EDT Letter requested for: In order for Patient to be seen at [facility] they are requesting a doctor request of why they want to be seen at [facility] . She can not book the appointment unitlthey receive this . Patient does not need a referral at this point . Reason for letter: For patient to be seen and for insurance reasons. Specific notations needed in body of letter: The letter needs to state exactly why Dr. Nunes is requesting that the patient be seen at [facility] . Date needed for completion: LYLY When completed: Fax to other office/MD at fax # [phone] documented in this encounter Plan of Treatment Not on file documented as of this encounter Visit Diagnoses Not on filedocumented in this encounter Care Teams Slinger Sequins Relationship Specialty Start Date End Date Capo Nunes MD PCP - General 09/23/09 02/10/22 [facility], Pcp PCP - General Internal Medicine 02/11/22 documented as of this encounter
--- OUTSIDE RECORDS SUMMARY | 2025-09-11 08:29 | XMS_ITS | Encounter Summary ---
Author Organization [facility] Prior to 08/04/2024 Address [address] [place] [address] Care Team Providers Care Beach Expert Name Role Phone Capo Nunes MD Primary Care Provider Unavail able [facility], Pcp Primary Care Provider Unavailabl e Encounter Details Date Type Department Care Team Description 06/09/2016 Pharmacy Retail Support Specialist Report Medical Records [address] [place] [address] Wade Sethi Social History Tobacco Use Types [...] on filedocumented in this encounter Care Teams Beach Expert Relationship Specialty Start Date End Date Capo Nunes MD PCP - General 09/23/09 02/10/22 [facility], Pcp PCP - General Internal Medicine 02/11/22 documented as of this encounter
--- OUTSIDE RECORDS SUMMARY | 2025-09-11 08:30 | XMS_ITS | Clinical Summary ---
Author Organization [facility] Address [address] [place] [address] Care Team Providers Care Machine Dyer Name Role Phone Capo Nunes MD Primary [...] (12/26/2021): 11/24 Eczema 10/13/2015 Overview (12/26/2021): Dr Lackey Pancreatitis 05/14/2015 Overview (12/26/2021): Possible 04/17 Anxiety 05/18/2014 Spondylolysis 05/15/2014 Hypothyroidism 05/15/2014 Spinal [...] 69 12/26/2021 10:53 AM EDT Temperature 36.7 C (98 F) 12/26/2021 10:53 AM EDT Respiratory Rate - [...] 1972 Hepatitis C Screening 1972 Sigmoidoscopy 1972 MMR Vaccines (1 of 1 - Stand julius series) 1973 PHQ-9 Depression Screen 1984 SANDY-7 Anxiety Screen 1990 Hepatitis B Vaccines (1 of 3 - 19+ 3-dose series) 1991 Cervical Cancer Screening (Pap/HPV) 1993 Pneumococcal Vaccine: 50+ Ye ars (2 of 2 - PCV) 12/12/2015 12/11/2014 Annual Preventive Exam 12/23/2021 1, 12/12/2019, 04/07/2019, Additional history exists Mammogram 03/29/2022 03/29/2020, 03/29/2020 Zoster Vaccines (2 of 2) 09/18/2022 07/24/2022 COVID-19 Vaccine (4 - 2024-2 6 season) 2025 09/06/2021, 02/13/2021, 01/16/2021 Influenza Vaccine (#1) 2025 2, 06/26/2021, 06/26/2021, Additional history exists DTaP,Tdap,and Td Vaccines (3 - Td or Tdap) 08/19/2030 08/19/2020, 10/10/2009 RSV Vaccine (SCDM) (1 - 1-do se 75+ series) 2047 Insurance NA Care Teams Machine Dyer Relationship Specialty Start Date End Date Capo Nunes MD PCP - General Internal Medicine 06/03/21
--- OUTSIDE RECORDS SUMMARY | 2025-09-11 08:30 | XMS_ITS | Encounter Summary ---
Author Organization [facility] Prior to 08/04/[address] [place] [address] Care Team Providers Care Kids Club Attendant Name Role Phone Capo Nunes MD Primary Care Provider [facility], Pcp Primary Care Provider Unavailabl e Encounter Details Date Type Department Care Team Description 11/25/2020 Pt. Non Urgent Medical Question Medicine/Pediatrics - [address] [phone] Stevie Morelos PA-C Social History Tobacco Use Types Packs/Day Years [...] or suspected to have Coronavirus / COVID-19? Unable to assess 11/12/2020 8:02 AM EST documented as of this encounter Miscellaneous Notes * Telephone Encounter - Annika Crisostomo M.A. - 11/25/2020 2:43 PM ESTFrom: Alicia Pierce To: Stevie Morelos PA-C Sent: 11/25/2020 12:01 PM EST Subject: Follow up Sobeida, I was just following yp. Wondering if you had a chance to see any of my test results from Wednesday. On the C-diff panel, is that something I need to redo seeing as they were not able to use the sample?And I was confused as to why they were not able to. Also some of my blood work was a bit questionabl e, just wondering if it is due to the infection? Thank you documented in this encounter Plan of Treatment Not on file documented as of this encounter Visit Diagnoses Not on filedocumented in this encounter Care Teams Kids Club Attendant Relationship Specialty Start Date End Date Capo Nunes MD PCP - General 09/23/09 02/10/22 [facility], Pcp PCP - General Internal Medicine 02/11/22 documented as of this encounter
--- OUTSIDE RECORDS SUMMARY | 2025-09-11 08:30 | XMS_ITS | Encounter Summary ---
Author Organization [facility] Prior to 08/04/2024 Address [address] [place] [address] Care Team Providers Care Survival Equipment Repairer Name Role Phone Capo Nunes MD Primary Care Provider Unavail able [facility], Pcp Primary Care Provider Unavailabl e Encounter Details Date Type Department Care Team Description 11/09/2018 Subway Train Operator Report Medical Records [address] [place] [id number] Kecia Sweeney PA-C Social History Tobacco Use Types Packs/Day [...] on filedocumented in this encounter Care Teams Survival Equipment Repairer Relationship Specialty Start Date End Date Capo Nunes MD PCP - General 09/23/09 02/10/22 [facility], Pcp PCP - General Internal Medicine 02/11/22 documented as of this encounter
--- OUTSIDE RECORDS SUMMARY | 2025-09-11 08:30 | XMS_ITS | Encounter Summary ---
Author Organization [facility] Prior to 08/04/2024 Address [address] [place] [address] Care Team Providers Care Fabrication Welder Name Role Phone Capo Nunes MD Primary Care Provider Unavail able [facility], Pcp Primary Care Provider Unavailabl e Encounter Details Date Type Department Care Team Description 09/06/2020 [facility] Medical Records [address] [place] [address] Abstract, Provider Social History Tobacco Use Types [...] have Coronavirus / COVID-19? No / Unsure 09/06/2020 11:23 AM EST documented as of this encounter Plan of Treatment Not on file documented as of this encounter Visit Diagnoses Not on filedocumented in this encounter Care Teams Fabrication Welder Relationship Specialty Start Date End Date Capo Nunes MD PCP - General 09/23/09 02/10/22 [facility], Pcp PCP - General Internal Medicine 02/11/22 documented as of this encounter
--- OUTSIDE RECORDS SUMMARY | 2025-09-11 08:30 | XMS_ITS | Encounter Summary ---
Author Organization [facility] Prior to 08/04/2024 Address [address] [place] [address] Care Team Providers Care Geophysical Operator Name Role Phone Capo Nunes MD Primary Care Provider Unavail able [facility], Pcp Primary Care Provider Unavailabl e Encounter Details Date Type Department Care Team Description 08/05/2020 Floor Inspector Report Medical Records [address] [place] [id number] Salvador Penn MD Social History Tobacco Use [...] have Coronavirus / COVID-19? Unable to assess 08/06/2020 7:56 AM EST documented as of this encounter Plan of Treatment Not on file documented as of this encounter Visit Diagnoses Not on filedocumented in this encounter Care Teams Geophysical Operator Relationship Specialty Start Date End Date Capo Nunes MD PCP - General 09/23/09 02/10/22 [facility], Pcp PCP - General Internal Medicine 02/11/22 documented as of this encounter
--- OUTSIDE RECORDS SUMMARY | 2025-09-11 08:30 | XMS_ITS | Encounter Summary ---
Author Organization [facility] Prior to 08/04/2024 Address [address] [place] [address] Care Team Providers Care Information Security Officer Name Role Phone Capo Nunes MD Primary Care Provider Unavail able [facility], Pcp Primary Care Provider Unavailabl e Encounter Details Date Type Department Care Team Description 05/30/2018 [facility] Medical Records [address] [place] [address] Abstract, Provider Social History Tobacco Use Types [...] on filedocumented in this encounter Care Teams Information Security Officer Relationship Specialty Start Date End Date Capo Nunes MD PCP - General 09/23/09 02/10/22 [facility], Pcp PCP - General Internal Medicine 02/11/22 documented as of this encounter
--- OUTSIDE RECORDS SUMMARY | 2025-09-11 08:30 | XMS_ITS | Encounter Summary ---
Author Organization [facility] Prior to 08/04/2024 Address [address] [place] [address] Care Team Providers Care Medical Specialist Name Role Phone Capo Nunes MD Primary Care Provider [facility], Pcp Primary Care Provider Unavailabl e Encounter Details Date Type Department Care Team Description 10/23/2015 Pt. Non Urgent Medical Question Medicine/Pediatrics - [address] [phone] Capo Nunes MD Social History Tobacco Use Types Packs/Day Years Used Date Smoking Tobacco: Never Smokeless Tobacco: Never Alcohol Use Standard Drinks/Week Comments Yes 0 (1 standard drink = 0.6 oz pure alcohol) 2-3 drinks per week nothing sense April due to the pain Sex Assigned at Date Recorded Female 08/15/2019 3:[address] documented as of this encounter Progress Notes * Leonila Moctezuma L.P.N. - 10/23/2015 1:42 PM ESTFrom: Alicia Pierce To: Capo Nunes MD Sent: 10/23/2015 1:29 PM EST Subject: Notes from visit on 06/13/15 Sobeida, I was seen on 06/13 and given a referral for physiatry due to ongoing neck and shoulder pain from a work comp accident. I was unable to find a physiatry provider in this area who would accept the workcomp I am on, so I needed to have the referral changed to pain management. I was able to find a pain management facility in the area. [facility] pain management. Unfortunately when I received the referral it was in September and it was just a referral switch over so there was no exam, so now the [employer] company will not approve for me to go for treatment without any notes for why I'm being referred andfor the 06/13 visit. They stated that if I do not have the notes by tomorrow I am going to have to start this process all over again which will once again delay my treatment. Is there anyway possible you would be able to email these notes to me? Thank you for any assistance you can give on this matter, Alicia documented in this encounter Plan of Treatment Not on file documented as of this encounter Visit Diagnoses Not on filedocumented in this encounter Care Teams Medical Specialist Relationship Specialty Start Date End Date Capo Nunes MD PCP - General 09/23/09 02/10/22 [facility], Pcp PCP - General Internal Medicine 02/11/22 documented as of this encounter
--- OUTSIDE RECORDS SUMMARY | 2025-09-11 08:30 | XMS_ITS | Encounter Summary ---
Author Organization [facility] Prior to 08/04/2024 Address [address] [place] [address] Care Team Providers Care Cooky Machine Operator Name Role Phone Capo Nunes MD Primary Care Provider Unavail able [facility], Pcp Primary Care Provider Unavailabl e Encounter Details Date Type Department Care Team Description 07/16/2020 Bookbinding Machine Operator Report Medical Records [address] [place] [id number] Salvador Penn MD Social History Tobacco Use [...] on filedocumented in this encounter Care Teams Cooky Machine Operator Relationship Specialty Start Date End Date Capo Nunes MD PCP - General 09/23/09 02/10/22 [facility], Pcp PCP - General Internal Medicine 02/11/22 documented as of this encounter
--- OUTSIDE RECORDS SUMMARY | 2025-09-11 08:30 | XMS_ITS | Encounter Summary ---
Author Organization [facility] Prior to 08/04/2024 Address [address] [place] [address] Care Team Providers Care Inker And Opaquer Name Role Phone Capo Nunes MD Primary Care Provider Unavail able [facility], Pcp Primary Care Provider Unavailabl e Encounter Details Date Type Department Care Team Description 12/13/2020 Old Medical Records Medical Records [address] [place] [address] Abstract, Provider Social History Tobacco Use Types [...] on filedocumented in this encounter Care Teams Inker And Opaquer Relationship Specialty Start Date End Date Capo Nunes MD PCP - General 09/23/09 02/10/22 [facility], Pcp PCP - General Internal Medicine 02/11/22 documented as of this encounter
== END 2025-09-11 08:55 | disposition home or self-care (01) ==
LOC: HO.HSMS 08:03
PROVIDERS: PCP Internal Medicine; Visit Provider Nurse Practitioner Family
DX: G43.009 Migraine without aura, not intractable, without status migrainosus (principal); R90.82 White matter disease, unspecified; G47.9 Sleep disorder, unspecified
CPT/HCPCS: 99214